=== PATIENT | female | born 1955 | race Caucasian/White ===

== ENCOUNTER 2018-10-26 21:25 | Inpatient (IN) | payer MEDICARE ==
[~2018-10-26] VITALS: Ht 160 cm; Wt 48.5 kg
[2018-10-27 07:12] LABS: BASOPHILS % (AUTO) 0.5 % (0.0-2.0); EOSINOPHILS % (AUTO) 0.6 % (0.0-6.0); HEMATOCRIT 38 % (33-45); HEMOGLOBIN 12.9 g/dL (11.5-14.8); LYMPHOCYTES # (AUTO) 1.3 /CMM (0.8-4.8); LYMPHOCYTES % (AUTO) 30.2 % (20.0-44.0); MEAN CORPUSCULAR HGB CONC 34 g/dl (31.0-36.0); MEAN CORPUSCULAR VOLUME 91 fL (82-100); MONOCYTES # (AUTO) 0.4 /CMM (0.1-1.30); MONOCYTES % (AUTO) 10.1 % (2.0-12.0); NEUTROPHILS # (AUTO) 2.6 /CMM (1.8-8.9); NEUTROPHILS % (AUTO) 58.6 % (43.0-81.0); PLATELET COUNT (AUTO) 147 /CMM (150-450); RED BLOOD CELL COUNT(AUTO) 4.16 MIL/uL (4.0-5.2); WHITE BLOOD COUNT (AUTO) 4.4 K/uL (4.3-11.0)
[2018-10-27] MEDS ORDERED: MAGNESIUM HYDROXIDE 30 ML UDC PO PRN (07:30)
[2018-10-27] MEDS ORDERED: ACETAMINOPHEN 325 MG TABLET PO PRN (07:30)
[2018-10-27] MEDS ORDERED: MAG HYDROX/AL HYDROX/SIMETH 30 ML UDC PO PRN (07:30)
[2018-10-27 07:42] LABS: CREATININE 0.7 mg/dL (0.6-1.3); MAGNESIUM 2.3 mg/dL (1.8-2.4); POTASSIUM 4.2 mmol/L (3.5-5.1)
[2018-10-27] MEDS ORDERED: FLUO15CR TD (08:23)
[2018-10-27] MEDS ORDERED: LISI-603 PO (08:23)
[2018-10-27] MEDS ORDERED: LORA1TAB PO (08:23)
[2018-10-27] MEDS ORDERED: HYDR200T4 PO (08:23)
[2018-10-27] MEDS ORDERED: OLAN10TA3 PO (08:23)
[2018-10-27] MEDS ORDERED: HALO5TAB PO (08:23)
[2018-10-27] MEDS ORDERED: METO25TA3 PO (08:23)
--- NOTE | 2018-10-27 10:09 | NUR ---
GPS RN NOTE: PT 63 Y/O FEMALE ADMITTED FROM [facility],PT PLACED ON 5150 HOLD FOR DTS,GD, PER HOLD PT AGITATED, UNABLE CONTRACT FOR SAFETY, UNABLE TO CARE FOR SELF. PE HAS HX OF HTN, COPE , SEPSIS, LUPUS, METH USE. PT A&OX1 , CONFUSED, JAMES AFFECT, ISOLATIVE, DEPRESSED MOOD. PT NON COOPERATIVE REFUSED SKIN ASSESSMENT, CHEST XRAY, REFUSED TO TAKE SHOWER, REFUSED TO ANSWER QUESTIONS. PT WAS SEEN AND EXAMINE BY DR JEFFERY. WILL CONTINUE MONITORING FOR SAFETY AND BEHAVIOR Q 15 MIN.
[2018-10-27] MEDS: OLANZAPINE 5 MG/TAB.RAPDIS PO SCH ×2 (12:47→21:08)
[2018-10-27] MEDS ORDERED: OLANZAPINE 2.5 MG TABLET PO PRN (15:00)
[2018-10-27 16:00] VITALS: BP 132/72
[2018-10-27] MEDS: TEMAZEPAM 7.5 MG CAPSULE PO PRN (21:38)
[2018-10-28 08:00] VITALS: BP 123/74
[2018-10-28] MEDS: HYDROXYCHLOROQUINE 200 MG TABLET PO SCH (09:39)
[2018-10-28] MEDS: FLUOCINONIDE 0.05% CREAM 60 GM TUBE TP SCH (09:39)
[2018-10-28] MEDS: LISINOPRIL (20MG) 20 MG TABLET PO SCH (09:40)
[2018-10-28] MEDS: METOPROLOL SUCCINATE 25 MG TAB.SR.24H PO SCH (09:40)
[2018-10-28] MEDS: OLANZAPINE 5 MG/TAB.RAPDIS PO SCH ×2 (09:41→20:21)
[2018-10-28 10:36] LABS: ALBUMIN 3.7 g/dL (3.4-5.0); BILIRUBIN,TOTAL 0.8 mg/dL (0.2-1.0); CALCIUM, SERUM 9.2 mg/dL (8.5-10.1); CREATININE 0.8 mg/dL (0.6-1.3); TOTAL PROTEIN, SERUM 7.9 g/dL (6.4-8.2)
--- NOTE | 2018-10-28 13:05 | NUR ---
GPS RN INITIAL NOTES Received report at bedside from Registry Nurse. Will continue to monitor and assess patient for safety and behavior.
--- NOTE | 2018-10-28 15:31 | NUR ---
GPS RN - NEW ORDER Paged Dr. Monsalve regarding UA - patient unable to provide urine sample. New order for straight cath: noted and carried out.
[2018-10-28 16:00] VITALS: BP 115/68
--- NOTE | 2018-10-28 16:14 | NUR ---
GPS RN NOTES Urine sample collected. pathology laboratory technologist/staff made aware for meat pickler
[2018-10-28 17:06] LABS: APPEARANCE,URINE CLOUDY (CLEAR); BILIRUBIN,URINE NEGATIVE (NEGATIVE); BLOOD, URINE NEGATIVE Ery/uL (NEGATIVE); COLOR,URINE YELLOW (YELLOW); KETONES,URINE NEGATIVE (NEGATIVE); LEUKOCYTE ESTERASE ,URINE 2+ (NEGATIVE); NITRITE, URINE POSITIVE (NEGATIVE); PROTEIN,URINE 2+ mg/dl (NEGATIVE); UGLUCOSE NEGATIVE (NEGATIVE)
[2018-10-28 17:30] LABS: PH,URINE >8.5 (5.0-8.0)
[2018-10-28 17:31] LABS: BACTERIA,URINE 4+ /HPF (None Seen); SQUAMOUS EPITHELIAL CELL,UR 0-2 /HPF (None Seen)
--- NOTE | 2018-10-28 17:35 | NUR ---
GPS RN NOTES power technician called to inform that UA needs to recollect
[2018-10-28] MEDS: LORAZEPAM 0.5 MG TABLET PO PRN (19:36)
[2018-10-28 20:00] VITALS: BP 93/59
--- NOTE | 2018-10-28 21:05 | NUR ---
GPS-RN RELAYED URINE LAB RESULT TO NELLY SIDDIQUI WITH NEW ORDER OF CIPROFLOXACIN 500MG PO Q12 X 5DAYS NOTED AND CARRIED OUT.
[2018-10-28] MEDS: CIPROFLOXACIN HCL 500 MG TABLET PO SCH (21:26)
[2018-10-29 08:00] VITALS: BP 107/56
[2018-10-29] MEDS: CIPROFLOXACIN HCL 500 MG TABLET PO SCH ×2 (08:59→21:50)
[2018-10-29] MEDS: METOPROLOL SUCCINATE 25 MG TAB.SR.24H PO SCH (08:59)
[2018-10-29] MEDS: LISINOPRIL (20MG) 20 MG TABLET PO SCH (08:59)
[2018-10-29] MEDS: OLANZAPINE 5 MG/TAB.RAPDIS PO SCH ×3 (09:00→17:55)
[2018-10-29] MEDS: FLUOCINONIDE 0.05% CREAM 60 GM TUBE TP SCH (10:43)
[2018-10-29] MEDS: HYDROXYCHLOROQUINE 200 MG TABLET PO SCH (10:44)
--- NOTE | 2018-10-29 11:51 | NUR ---
ALBARO contacted pts Oleksandr, for collateral information and discharge planning. stated that he is open to the idea of pt being discharged to a [facility] home but wishes for pt to be discharged home with a caregiver. stated that he will be coming on Monday10/31/18 to visit pt and assess her needs and his capability of caring for her at home.
--- NOTE | 2018-10-29 12:11 | NUR ---
INITIAL DISCHARGE PLAN: Per Oleksandr [phone] he is open to SNF placement but wishes for pt to return home [address] [place] [id number] with a caregiver. stated he will come this week to assess pt and his ability to care for pt at home. SW will help form a safe and proper discharge in collaboration with MD and .
[2018-10-29] MEDS: LORAZEPAM 0.5 MG TABLET PO PRN ×2 (14:16→21:50)
[2018-10-29 16:00] VITALS: BP 136/82
[2018-10-29 16:55] LABS: BASOPHILS % (AUTO) 0.6 % (0.0-2.0); EOSINOPHILS % (AUTO) 0.1 % (0.0-6.0); HEMATOCRIT 40 % (33-45); HEMOGLOBIN 13.7 g/dL (11.5-14.8); LYMPHOCYTES # (AUTO) 1.7 /CMM (0.8-4.8); LYMPHOCYTES % (AUTO) 22.1 % (20.0-44.0); MEAN CORPUSCULAR HGB CONC 34 g/dl (31.0-36.0); MEAN CORPUSCULAR VOLUME 90 fL (82-100); MONOCYTES # (AUTO) 0.6 /CMM (0.1-1.30); MONOCYTES % (AUTO) 7.3 % (2.0-12.0); NEUTROPHILS # (AUTO) 5.3 /CMM (1.8-8.9); NEUTROPHILS % (AUTO) 69.9 % (43.0-81.0); PLATELET COUNT (AUTO) 178 /CMM (150-450); RED BLOOD CELL COUNT(AUTO) 4.41 MIL/uL (4.0-5.2); WHITE BLOOD COUNT (AUTO) 7.6 K/uL (4.3-11.0)
[2018-10-29 17:07] LABS: BILIRUBIN,TOTAL 0.7 mg/dL (0.2-1.0); CALCIUM, SERUM 9.6 mg/dL (8.5-10.1); CREATININE 1.7 mg/dL (0.6-1.3); MAGNESIUM 2.2 mg/dL (1.8-2.4); TOTAL PROTEIN, SERUM 8.1 g/dL (6.4-8.2)
[2018-10-29 19:56] VITALS: BP 110/61
[2018-10-29] MEDS: TEMAZEPAM 7.5 MG CAPSULE PO PRN (21:50)
[2018-10-30] MEDS: FLUOCINONIDE 0.05% CREAM 60 GM TUBE TP SCH (09:00)
[2018-10-30] MEDS: LISINOPRIL (20MG) 20 MG TABLET PO SCH (09:00)
[2018-10-30] MEDS: HYDROXYCHLOROQUINE 200 MG TABLET PO SCH (09:00)
[2018-10-30] MEDS: CIPROFLOXACIN HCL 500 MG TABLET PO SCH (09:00)
[2018-10-30] MEDS: METOPROLOL SUCCINATE 25 MG TAB.SR.24H PO SCH (09:00)
[2018-10-30] MEDS: OLANZAPINE 5 MG/TAB.RAPDIS PO SCH (09:00)
[2018-10-30] MEDS ORDERED: IV D5/0.45 NACL 1,000 ML IV PRN (09:35)
[2018-10-30 09:42] VITALS: BP 105/56
--- NOTE | 2018-10-30 09:44 | NUR ---
RN-CO: Patient was seen and examined by Dr Gallegos with order to discharge patient to medical floor for further evaluation due to high BUN and creatine. Dr Molina ordered to discharge patient to medical floor and continue hold. NOted. We will notify family and RN supervisor ticket sales.
[2018-10-30] MEDS ORDERED: ACETAMINOPHEN 325 MG TABLET PO PRN (10:00)
[2018-10-30] MEDS ORDERED: MAG HYDROX/AL HYDROX/SIMETH 30 ML UDC PO PRN (10:00)
[2018-10-30] MEDS ORDERED: HYDROCODONE/APAP 5/325MG 1 EACH TABLET PO PRN (10:00)
[2018-10-30] MEDS ORDERED: CIPROFLOXACIN IV RTU 400 MG in PREMIX 1 EA IV SCH (10:00)
[2018-10-30] MEDS ORDERED: ONDANSETRON HCL/PF 4 MG/2 ML VIAL IVP PRN (10:00)
[2018-10-30] MEDS ORDERED: MAGNESIUM HYDROXIDE 30 ML UDC PO PRN (10:00)
[2018-10-30] MEDS ORDERED: ZOLPIDEM TARTRATE 5 MG TABLET PO PRN (10:00)
[2018-10-30] MEDS ORDERED: Z GUARD REMEDY 2 OZ OINT TP PRN (10:00)
[2018-10-30 10:34] LABS: BASOPHILS % (AUTO) 0.7 % (0.0-2.0); EOSINOPHILS % (AUTO) 0.5 % (0.0-6.0); HEMATOCRIT 40 % (33-45); HEMOGLOBIN 13.7 g/dL (11.5-14.8); LYMPHOCYTES # (AUTO) 1.3 /CMM (0.8-4.8); LYMPHOCYTES % (AUTO) 34.5 % (20.0-44.0); MEAN CORPUSCULAR HGB CONC 34 g/dl (31.0-36.0); MEAN CORPUSCULAR VOLUME 91 fL (82-100); MONOCYTES # (AUTO) 0.4 /CMM (0.1-1.30); MONOCYTES % (AUTO) 11.9 % (2.0-12.0); NEUTROPHILS % (AUTO) 52.4 % (43.0-81.0); PLATELET COUNT (AUTO) 156 /CMM (150-450); RED BLOOD CELL COUNT(AUTO) 4.41 MIL/uL (4.0-5.2); WHITE BLOOD COUNT (AUTO) 3.7 K/uL (4.3-11.0)
--- NOTE | 2018-10-30 11:00 | NUR ---
NURSING NOTE: PT WAS SEEN AND ASSESSED BY DR. CONNOR, WITH ORDER FOR IV FLUIDS. 22G LEFT HAND IV STARTED. WILL CONTINUE TO MONITOR.
[2018-10-30 11:10] LABS: ALBUMIN 3.8 g/dL (3.4-5.0); BILIRUBIN,TOTAL 0.8 mg/dL (0.2-1.0); CALCIUM, SERUM 9.2 mg/dL (8.5-10.1); CREATININE 2.1 mg/dL (0.6-1.3); MAGNESIUM 2.3 mg/dL (1.8-2.4); POTASSIUM 4.9 mmol/L (3.5-5.1); TOTAL PROTEIN, SERUM 7.6 g/dL (6.4-8.2)
--- NOTE | 2018-10-30 12:45 | NUR ---
NURSING DISCHARGE NOTE: PT WAS DISCHARGED TODAY TO MED SURG ROOM 313A FOR ACUTE RENAL FAILURE. PT IS CALM, COOPERATIVE, ISOLATIVE, GUARDED, DENIES SI/HI AT THIS TIME. PT REFUSING TO EAT AND DRINK, REFUSING MEDICATIONS, SPIT THEM OUT THIS MORNING. PT WAS SEEN AND ASSESSED BY DR. JEFFERY WITH ORDER TO DC PT TO MED SURG FLOOR AND CONTINUE 5250 HOLD. PT WAS SEEN AND ASSESSED BY DR. CONNOR WITH ORDER TO DC PT TO MED SURG FLOOR FOR ACUTE RENAL FAILURE. REPORT WAS GIVEN TO SCIENTIFIC PROGRAMMER ANALYST ON THE MED SURG UNIT. PT LEFT THE UNIT VIA DEVORAH CHAIR ACCOMPANIED BY 1 ACCOUNTING AUDITOR AND MYSELF TO MED SURG. ALL BELONGING WERE RETURNED TO PT. ORIGINAL 5150 AND 5250 HOLDS WERE GIVEN TO SCIENTIFIC PROGRAMMER ANALYST.
[2018-10-30] MEDS ORDERED: OLAN2.5T3 PO ×2 (14:05)
[2018-10-30] MEDS ORDERED: LORA0.5T PO (14:05)
[2018-10-30] MEDS ORDERED: ALLA266C2 TP (14:05)
[2018-10-30] MEDS ORDERED: HYDR-4384 PO (14:05)
[2018-10-30] MEDS ORDERED: PANT40TA4 PO (14:05)
[2018-10-30] MEDS ORDERED: TEMA7.5C12 PO (14:05)
[2018-10-30] MEDS ORDERED: MAGN400O6 PO (14:05)
[2018-10-30] MEDS ORDERED: MAG30ORA PO (14:05)
[2018-10-30] MEDS ORDERED: ONDA4SYR IVP (14:05)
[2018-10-30] MEDS ORDERED: CIPR500T5 PO (14:05)
[2018-10-30] MEDS ORDERED: ACET325T53 PO (14:05)
[2018-10-30] MEDS ORDERED: ZOLP5TAB8 PO (14:05)
[2018-10-30] MEDS ORDERED: CIPROFLOXACIN IV (14:05)
[2018-10-30] MEDS ORDERED: [UNRECOGNIZED DRUG - CODE] IV (14:10)
[2018-10-31] MEDS ORDERED: PANTOPRAZOLE 40 MG TABLET.DR PO SCH (07:30)
--- NOTE | 2018-10-31 13:21 | NUR ---
DISCHARGE NOTE: Pt was transferred to the Medical Floor due to acute kidney failure. Pt remains on a hold.
[2018-11-07] MEDS ORDERED: LORA0.5T PO (11:23)
[2018-11-07] MEDS ORDERED: MAG30ORA PO (11:23)
[2018-11-07] MEDS ORDERED: MEGE400O4 PO (11:23)
[2018-11-07] MEDS ORDERED: LACT-246 PO (11:23)
[2018-11-07] MEDS ORDERED: NICO-677 TD (11:23)
[2018-11-07] MEDS ORDERED: HYDR-3972 PO (11:23)
[2018-11-07] MEDS ORDERED: risperiDONE-M PO (11:23)
[2018-11-07] MEDS ORDERED: ACET325T53 PO (11:23)
[2018-11-07] MEDS ORDERED: PANT40TA2 PO (11:23)
[2018-11-07] MEDS ORDERED: VENL37.55 PO (11:23)
[2018-11-07] MEDS ORDERED: OLAN5TAB6 PO (11:23)
[2018-11-07] MEDS ORDERED: MAGN400O6 PO (11:23)
[2018-11-07] MEDS ORDERED: BENZ1TAB7 PO (11:23)
== END 2018-10-30 12:45 | disposition short-term general hospital (02) | DRG 885 ==
LOC: GPS 21:25
PROVIDERS: ADMIT Psychiatry & Neurology Psychosomatic Medicine; ATTEND Nurse Practitioner Acute Care
DX: F29 Unspecified psychosis not due to a substance or known physiological condition (principal); F01.50 Vascular dementia, unspecified severity, without behavioral disturbance, psychotic disturbance, mood disturbance, and anxiety; N17.0 Acute kidney failure with tubular necrosis; N39.0 Urinary tract infection, site not specified; G10 Huntington's disease; I10 Essential (primary) hypertension; J44.9 Chronic obstructive pulmonary disease, unspecified; E86.0 Dehydration; Z73.6 Limitation of activities due to disability; F15.11 Other stimulant abuse, in remission; F02.80 Dementia in other diseases classified elsewhere, unspecified severity, without behavioral disturbance, psychotic disturbance, mood disturbance, and anxiety
CPT/HCPCS: 36415; 80048-TC; 80053-TC; 80061-TC; 81000-TC; 83605-TC; 83735-TC; 84100-TC; 85025-TC; 87081-TC; A4216; J0744; J2405; J3490

== ENCOUNTER 2018-10-30 12:26 | Inpatient (IN) | payer MEDICARE ==
[~2018-10-30] VITALS: Ht 160 cm; Wt 42.2 kg
[~2018-10-30 12:26] MED LIST: FLUO15CR TD; HYDR200T4 PO; LISI-603 PO; METO25TA3 PO
--- NOTE | 2018-10-30 12:50 | NUR ---
m/s mirror machine feeder: admission admitted this pt from geropsych unit via w/c with dx: acute renal failure and uti. pt awake, alert to name, speech is clear, but refusing to converse with staff. also pt is resistive to care, full body assessment, but noted with facial redness and peeling, and skin discoloration on right thigh and right lower leg. pt gets combative m/b kicking and hitting staff despite with a female staff present. per report, pt refused her am meds and hasn't gone to bathroom since this morning, but able to ambulate. oriented to room and surroundings. pt keeps tossing and turning also refused to have her diaper change or check if she is wet. pt also refused vital signs to be taken. reality orientation provided prn. cn made aware. will continue to monitor.
--- NOTE | 2018-10-30 13:00 | NUR ---
m/s scratch polisher: notes spoke to dr. ingram earlier and i informed her that her orders from this morning will not be carried out to medical surgical floor due to different account with orders to put her orders in when pt arrived. all orders carried out and acknowledged.
--- NOTE | 2018-10-30 13:45 | NUR ---
m/s shank boner: notes maxwell (daughter) called and spoke to pt briefly (10 seconds) and then pt hang up on her. reality orientation provided prn. will continue to monitor. sitter at bedside.
--- NOTE | 2018-10-30 14:00 | NUR ---
m/s terra cotta mold maker: notes pt refusing to have photos taken to her face and still refusing to full body assessment. also pt refused mrsa suirvellance collection to nostril. reality orientation provided prn. sitter at bedside. will continue to monitor.
[2018-10-30] MEDS ORDERED: ACET325T53 PO (14:05)
[2018-10-30] MEDS ORDERED: MAG30ORA PO (14:05)
[2018-10-30] MEDS ORDERED: CIPR500T5 PO (14:05)
[2018-10-30] MEDS ORDERED: OLAN2.5T3 PO ×2 (14:05)
[2018-10-30] MEDS ORDERED: PANT40TA4 PO (14:05)
[2018-10-30] MEDS ORDERED: ONDA4SYR IVP (14:05)
[2018-10-30] MEDS ORDERED: LORA0.5T PO (14:05)
[2018-10-30] MEDS ORDERED: HYDR-4384 PO (14:05)
[2018-10-30] MEDS ORDERED: ZOLP5TAB8 PO (14:05)
[2018-10-30] MEDS ORDERED: TEMA7.5C12 PO (14:05)
[2018-10-30] MEDS ORDERED: MAGN400O6 PO (14:05)
[2018-10-30] MEDS ORDERED: ALLA266C2 TP (14:05)
[2018-10-30] MEDS ORDERED: CIPROFLOXACIN IV (14:05)
[2018-10-30] MEDS ORDERED: [UNRECOGNIZED DRUG - CODE] IV (14:10)
--- NOTE | 2018-10-30 14:25 | NUR ---
m/s legal financial specialist: notes dr. zuniga (psych) notified re: admission with order to continue ativan and psychotropic medications from previous admission. orders read back to her and carried out and acknowledged.
[2018-10-30] MEDS ORDERED: ACETAMINOPHEN 325 MG TABLET PO PRN (14:30)
[2018-10-30] MEDS ORDERED: ONDANSETRON HCL/PF 4 MG/2 ML VIAL IV PRN (14:30)
[2018-10-30] MEDS ORDERED: ZOLPIDEM TARTRATE 5 MG TABLET PO PRN (14:30)
[2018-10-30] MEDS ORDERED: HYDROCODONE/APAP 5/325MG 1 EACH TABLET PO PRN (14:30)
[2018-10-30] MEDS ORDERED: MAG HYDROX/AL HYDROX/SIMETH 30 ML UDC PO PRN (14:30)
[2018-10-30] MEDS ORDERED: OLANZAPINE 2.5 MG TABLET PO PRN (14:30)
[2018-10-30] MEDS ORDERED: LORAZEPAM 0.5 MG TABLET PO PRN (14:30)
[2018-10-30] MEDS ORDERED: MAGNESIUM HYDROXIDE 30 ML UDC PO PRN (14:30)
--- NOTE | 2018-10-30 14:40 | NUR ---
m/s absence management consultant: notes donnie () called and spoke to pt briefly and then hang up. pt remains resistive to care, not allowing staff to examine her, but not aggressive at this time, stated, "no". will continue to monitor.
[2018-10-30] MEDS: IV D5/0.45 NACL 1,000 ML IV PRN (15:00)
--- NOTE | 2018-10-30 15:00 | NUR ---
m/s medical payment poster: notes started pt on iv fluids of d5 1/2 ns, but pt keeps removing line and prevented her from pulling her iv. iv disconnected due to pt keeps pulling line. will continue to monitor.
--- NOTE | 2018-10-30 15:15 | NUR ---
m/s plunger scoop operator: notes gps staff brought her right belongings to floor, but noted clothes soiled with urine. place them in bag and sealed.
--- NOTE | 2018-10-30 15:30 | NUR ---
m/s maintenance tech: notes noted diaper soaking wet, offered to change her diaper, pt still resistive, but manage to change her diaper by female staff, but refuse pericare. reality orientation provided prn.
--- NOTE | 2018-10-30 16:10 | NUR ---
m/s ruby engineer: notes called donnie and informed him that pt clothes are soiled and come and visit tomorrow and will bring clothes. handed the phone to pt and spoke briefly. continue on 1:1 sitter. after talking to , pt agreed to have her iv connected. iv antibiotic administered by rn. will continue to monitor.
[2018-10-30] MEDS: CIPROFLOXACIN IV RTU 400 MG in PREMIX 1 EA IV SCH (16:11)
[2018-10-30] MEDS: OLANZAPINE 2.5 MG TABLET PO SCH (16:43)
--- NOTE | 2018-10-30 17:00 | NUR ---
m/s window glass cutter off: notes dinner served, but pt refused to eat. pt also refused vital signs to be taken. will continue to monitor.
--- NOTE | 2018-10-30 18:30 | NUR ---
m/s sport psychologist: notes in bed with eyes close, resting comfortable. needs attended. no apparent distress noted. will continue to monitor.
--- NOTE | 2018-10-30 19:00 | NUR ---
MS RN NOTES RECEIVED PT IN BED SLEEPING BUT EASILY AWOKEN VERBALLY OR BY TOUCH. PT A/O X1. PT DENIES PAIN AT THIS TIME. RESPIRATIONS EVEN AND UNLABORED WITH NO S/S OF ACUTE DISTRESS OR SOB NOTED. PT WITH SITTER AT BEDSIDE. IV IN LEFT HAND 22G RUNNING D51/2NS @75 ML/HR. CALL LIGHT WITHIN REACH. WILL CONTINUE TO MONITOR.
[2018-10-30 20:25] VITALS: BP 101/54
[2018-10-31] MEDS: CIPROFLOXACIN IV RTU 400 MG in PREMIX 1 EA IV SCH ×2 (02:24→14:14)
[2018-10-31] MEDS: IV D5/0.45 NACL 1,000 ML IV PRN ×2 (07:04→22:35)
--- NOTE | 2018-10-31 07:25 | NUR ---
MS RN NOTES PT IN BED SLEEPING BUT EASILY AWOKEN VERBALLY OR BY TOUCH. PT A/O X1. PT DENIES PAIN AT THIS TIME. RESPIRATIONS EVEN AND UNLABORED WITH NO S/S OF ACUTE DISTRESS OR SOB NOTED THROUGHOUT SHIFT. PT KEPT CLEAN, DRY, AND COMFORTABLE. PT WITH SITTER AT BEDSIDE. PT REFUSED AM LABS. IV IN LEFT HAND 22G RUNNING D51/2NS @75 ML/HR. CALL LIGHT WITHIN REACH. WILL ENDORSE TO ONCOMING NURSE FOR SHELBI.
[2018-10-31] MEDS: PANTOPRAZOLE 40 MG TABLET.DR PO SCH (07:30)
--- NOTE | 2018-10-31 07:34 | NUR ---
MS RN OPENING NOTES RECEIVED PT IN BED, ASLEEP. EASILY AROUSED, AND DOESN'T WANT TO BE BOTHERED AT THIS MOMENT. DENIES PAIN. TOLERATING RA, NO ACUTE RESPIRATORY DISTRESS NOTED. IVF D5 1/2 NS AT 75ML/HR TO LEFT HAND G22, INTACT AND INFUSING WELL. STILL WAITING FOR FAMILY MEMBER TO COME FOR PT UA COLLECTION AND AM LABS TO BE DRAWN. PER LICENSE ISSUER NURSE PT REFUSED FOR AM LABS. MD CONNOR PRESENT BEDSIDE AND AWARE OF PT'S REFUSALS THIS MORNING. PT'S BED KEPT IN LOWEST, LOCKED POSITION. SITTER PRESENT BEDSIDE. WILL CONTINUE PLAN OF CARE.
[2018-10-31] MEDS ORDERED: LISINOPRIL (20MG) 20 MG TABLET PO SCH (09:00)
[2018-10-31] MEDS: METOPROLOL SUCCINATE 25 MG TAB.SR.24H PO SCH (09:00)
[2018-10-31] MEDS: HYDROXYCHLOROQUINE 200 MG TABLET PO SCH (09:00)
[2018-10-31] MEDS: OLANZAPINE 2.5 MG TABLET PO SCH ×3 (09:00→16:37)
[2018-10-31] MEDS: FLUOCINONIDE 0.05% CREAM 60 GM TUBE TP SCH (09:00)
--- NOTE | 2018-10-31 09:23 | NUR ---
MS RN NOTES PT REFUSED ALL MORNING MEDICATIONS AND LIDEX CREAM FOR FACIAL RASH. WOUND NURSE PRESENT BEDSIDE AND PT REFUSED CONSULT. VITAL SIGNS WAS NOT TAKEN WELL PT INSISTING TO REFUSE ANYTHING. OFFERED BREAKFAST AND UP TO THIS MOMENT PT DOESN'T WANT IT/ STATING "I DONT NEED ANYTHING, IM GOING BACK TO SLEEP." SITTER PRESENT BEDSIDE AND WITNESSED.
--- NOTE | 2018-10-31 10:41 | NUR ---
WOUND CONSULT:PATIENT PRESENT ON ADMISSION FACIAL RASHES, CURRENT SHELL SCALE IS 16, PLAN OF CARE WILL DIFFER TO PRIMARY CARE DOCTOR AND DISCUSSED WITH NURSING STAFF,UNABLE TO CHECK BOTH LEGS DISCOLORATION, PATIENT NOT COOPERATIVE AND AGITATED.PRIMARY NURSE AWARE Addendum: 10/31/18 at 1047 by MAIRAM SCHWARZ RN Amended: Links added.
--- NOTE | 2018-10-31 11:30 | NUR ---
MS RN NOTES PT REFUSED THE US FOR KIDNEYS, AND 2ND TIME FOR BLOOD TO BE DRAWN. CALLED AND SPOKE TO /NUNU VIA PHONE. STATING HE COULD HELP BUT HE WILL BE VISITING [facility] AT 1800. [employer] MADE AWARE WELL.
--- NOTE | 2018-10-31 11:36 | NUR ---
PATIENT REFUSED US AT 1130 AM, RN WILL CALL BACK IF ANY CHANGE
--- NOTE | 2018-10-31 17:46 | NUR ---
MS RN NOTES PT'S PRESENT BEDSIDE. MADE AWARE LABS, SPOKE TO SHERRY IF THEY COULD TRY TO DRAW BLOOD WHILE THE IS HERE. WILL CONTINUE TO MONITOR.
[2018-10-31 18:10] LABS: BASOPHILS % (AUTO) 0.7 % (0.0-2.0); EOSINOPHILS % (AUTO) 0.9 % (0.0-6.0); HEMATOCRIT 36 % (33-45); HEMOGLOBIN 12.5 g/dL (11.5-14.8); LYMPHOCYTES # (AUTO) 1.2 /CMM (0.8-4.8); LYMPHOCYTES % (AUTO) 34.1 % (20.0-44.0); MEAN CORPUSCULAR HGB CONC 34 g/dl (31.0-36.0); MEAN CORPUSCULAR VOLUME 90 fL (82-100); MONOCYTES # (AUTO) 0.4 /CMM (0.1-1.30); MONOCYTES % (AUTO) 11.6 % (2.0-12.0); NEUTROPHILS # (AUTO) 1.8 /CMM (1.8-8.9); NEUTROPHILS % (AUTO) 52.7 % (43.0-81.0); PLATELET COUNT (AUTO) 146 /CMM (150-450); RED BLOOD CELL COUNT(AUTO) 4.05 MIL/uL (4.0-5.2); WHITE BLOOD COUNT (AUTO) 3.4 K/uL (4.3-11.0)
[2018-10-31 18:23] LABS: CALCIUM, SERUM 8.7 mg/dL (8.5-10.1); CREATININE 1.5 mg/dL (0.6-1.3); PHOSPHORUS 3.6 mg/dL (2.5-4.9); POTASSIUM 4.1 mmol/L (3.5-5.1)
--- NOTE | 2018-10-31 18:46 | NUR ---
MS RN CLOSING NOTES PT REMAINS IN BED, INTERMITTENTLY DOZING OFF, EASILY AROUSED. PT DENIES PAIN. TOLERATING RA, NO ACUTE RESPIRATORY DISTRESS NOTED. IVF D5 1/2 NS AT 75ML/HR TO LEFT HAND G22, INTACT AND INFUSING WELL. PRESENT BEDSIDE, BLOOD WAS ABLE TO DRAWN AROUND 1800 AND US FOR KIDNEY WITH THE HELP OF . ALL NEEDS AND CARE PROVIDED. PT'S BED KEPT IN LOWEST, LOCKED POSITION WITH SR X2. 1:1 SITTER PRESENT BEDSIDE. WILL ENDORSE TO RN COMMUNITY NURSE FOR SHELBI.
--- NOTE | 2018-10-31 19:00 | NUR ---
MS RN NOTES RECEIVED PT IN BED AWAKE WITH FAMILY AT BEDSIDE. PT A/O X1. PT DENIES PAIN AT THIS TIME. RESPIRATIONS EVEN AND UNLABORED WITH NO S/S OF ACUTE DISTRESS OR SOB NOTED. PT WITH SITTER AT BEDSIDE. IV IN LEFT HAND 22G RUNNING D51/2NS @75 ML/HR. SAFETY MEASURES IN PLACE WITH BED IN LOWEST LOCK POSITION WITH SIDE RAILS UP X2. CALL LIGHT WITHIN REACH. WILL CONTINUE TO MONITOR.
[2018-10-31 19:17] LABS: THYROID STIMULATING HORMONE 1.168 uIU/mL (0.358-3.74)
[2018-10-31 20:00] VITALS: BP 103/58
[2018-11-01] MEDS: CIPROFLOXACIN IV RTU 400 MG in PREMIX 1 EA IV SCH ×2 (02:11→14:04)
--- NOTE | 2018-11-01 07:37 | NUR ---
MS RN OPENING NOTES RECEIVED PT IN BED, AWAKE. PT DENIES PAIN. TOLERATING RA, NO ACUTE RESPIRATORY DISTRESS NOTED. SUPPOSED TO BE ON IVF D5 1/2 NS AT 75ML/HR PER NIGHT NURSE PT PULLED OUT IV LINE AROUND 0615, TRIED TO PUT BACK IN AND START A NEW ONE BUT PT STARTED TO BE COMBATIVE. CN MADE AWARE. PREFERS TO WAIT FOR BEDSIDE TO HELP PT TO BE CALM WHILE STARTING A NEW LINE. PT KEPT COMFORTABLE. PT'S BED KEPT IN LOWEST, LOCKED POSITION WITH SR X2. 1:1 SITTER PRESENT BEDSIDE. WILL CONTINUE PLAN OF CARE.
--- NOTE | 2018-11-01 07:39 | NUR ---
MS RN NOTES PT IN BED AWAKE WITH FAMILY AT BEDSIDE. PT A/O X1. PT DENIES PAIN AT THIS TIME. RESPIRATIONS EVEN AND UNLABORED WITH NO S/S OF ACUTE DISTRESS OR SOB NOTED THROUGHOUT SHIFT. PT WITH SITTER AT BEDSIDE. IV IN LEFT HAND 22G RUNNING WAS PULLED OUT. SAFETY MEASURES IN PLACE WITH BED IN LOWEST LOCK POSITION WITH SIDE RAILS UP X2. CALL LIGHT WITHIN REACH. WILL ENDORSE TO ONCOMING NURSE FOR SHELBI.
[2018-11-01] MEDS: PANTOPRAZOLE 40 MG TABLET.DR PO SCH (07:57)
[2018-11-01 08:00] VITALS: BP 107/55
[2018-11-01] MEDS: OLANZAPINE 2.5 MG TABLET PO SCH ×3 (08:01→16:11)
[2018-11-01] MEDS: HYDROXYCHLOROQUINE 200 MG TABLET PO SCH (08:02)
[2018-11-01] MEDS: METOPROLOL SUCCINATE 25 MG TAB.SR.24H PO SCH (08:39)
[2018-11-01] MEDS: FLUOCINONIDE 0.05% CREAM 60 GM TUBE TP SCH (08:42)
[2018-11-01 09:42] LABS: BASOPHILS % (AUTO) 0.6 % (0.0-2.0); EOSINOPHILS % (AUTO) 0.7 % (0.0-6.0); HEMATOCRIT 38 % (33-45); LYMPHOCYTES # (AUTO) 1.1 /CMM (0.8-4.8); LYMPHOCYTES % (AUTO) 38.3 % (20.0-44.0); MEAN CORPUSCULAR HGB CONC 34 g/dl (31.0-36.0); MEAN CORPUSCULAR VOLUME 91 fL (82-100); MONOCYTES # (AUTO) 0.4 /CMM (0.1-1.30); MONOCYTES % (AUTO) 14.1 % (2.0-12.0); NEUTROPHILS # (AUTO) 1.3 /CMM (1.8-8.9); NEUTROPHILS % (AUTO) 46.3 % (43.0-81.0); PLATELET COUNT (AUTO) 136 /CMM (150-450); RED BLOOD CELL COUNT(AUTO) 4.21 MIL/uL (4.0-5.2); WHITE BLOOD COUNT (AUTO) 2.8 K/uL (4.3-11.0)
[2018-11-01 09:55] LABS: ALBUMIN 3.5 g/dL (3.4-5.0); BILIRUBIN,TOTAL 0.6 mg/dL (0.2-1.0); CALCIUM, SERUM 8.9 mg/dL (8.5-10.1); CREATININE 1.4 mg/dL (0.6-1.3); MAGNESIUM 1.9 mg/dL (1.8-2.4); PHOSPHORUS 2.9 mg/dL (2.5-4.9); POTASSIUM 4.1 mmol/L (3.5-5.1)
[2018-11-01 10:12] LABS: LYMPHOCYTES % (MANUAL) 35 % (16-48); MONOCYTES % (MANUAL) 11 % (0-11.0); NEUTROPHILS % (MANUAL) 54 (42-76)
[2018-11-01 16:00] VITALS: BP 126/78
[2018-11-01] MEDS: ENSURE ENLIVE CHOC 237 ML CAN PO SCH (17:08)
--- NOTE | 2018-11-01 19:00 | NUR ---
MS RN CLOSING NOTES PT REMAINS IN BED, AWAKE. PT DENIES PAIN. TOLERATING RA, NO ACUTE RESPIRATORY DISTRESS NOTED. IVF D5 1/2 NS AT 75ML/HR TO LEFT FOREARM G22,INATCT AND INFUSING WELL. PT REFUSED LUNCH OF MEAL, MD MONTES AWARE. NUNU PRESENT BEDSIDE THIS MORNING ASND HAD A CHANCE TO SPEAK TO JAYNE/JORDYN REGARDING PLAN OF TRANSFER. ALL NEEDS AND CARE PROVIDED. PT KEPT COMFORTABLE. PT'S BED KEPT IN LOWEST, LOCKED POSITION WITH SR X2. 1:1 SITTER PRESENT BEDSIDE. WILL ENDORSE TO QUALITY CONTROL ANALYST NURSE FOR SHELBI..
--- NOTE | 2018-11-01 19:29 | NUR ---
MS RN RECEIVE PT IN BED A/O X 1, 1:1 SITTER, AWAKE, RESPIRATIONS EVEN AND UNLABORED, NO SOB NOTED, NO DISTRESS, SAFETY MEASURES IN PLACE. WILL CONTINUE TO MONITOR.
[2018-11-01 20:00] VITALS: BP 151/80
[2018-11-01] MEDS: TEMAZEPAM 7.5 MG CAPSULE PO PRN (21:07)
[2018-11-01] MEDS ORDERED: OLANZAPINE 5 MG/TAB.RAPDIS PO SCH (22:00)
[2018-11-02] MEDS: CIPROFLOXACIN IV RTU 400 MG in PREMIX 1 EA IV SCH ×2 (02:12→15:57)
--- NOTE | 2018-11-02 06:01 | NUR ---
MS RN asleep and easily awaken, not in distress, AM care rendered. pt appears withdrawn, flat affect denies active suicidal and HI.pt refuses answer question re orient pt freq, encourage po/fluid intake. 1:1 sitter. kept clean and dry and comfortable. endorse next shift poc. Addendum: 11/02/18 at 0606 by TATI SANDOVAL RN pt still refusing to provide UA sample despite explaining risks and benefits pt became agitated when touch
--- NOTE | 2018-11-02 06:15 | NUR ---
slept well during the night 10 hours
--- NOTE | 2018-11-02 07:15 | NUR ---
MS/RN OPENING NOTE THE PATIENT ALERT AND ORIENTED X1. IN ROOM AIR AND RESPIRATION REGULAR AND UNLABORED. PATIENT IN NO APPARENT DISTRESS. LFA G 22 PATENT AND SALINE LOCKED. BED LOW AND LOCKED. SIDE RAILS UP X3. CALL LIGHT WITHIN REACH. WILL CONTINUE TO MONITOR. Addendum: 11/02/18 at 0741 by HE JOHNSON RN SITTER AT THE BEDSIDE.
[2018-11-02 08:00] VITALS: BP 119/77
[2018-11-02] MEDS: NICOTINE PATCH (21MG) 21 MG PATCH.TD24 TD SCH (08:35)
[2018-11-02] MEDS: PANTOPRAZOLE 40 MG TABLET.DR PO SCH (08:35)
[2018-11-02] MEDS: ENSURE ENLIVE CHOC 237 ML CAN PO SCH ×3 (08:35→17:00)
[2018-11-02] MEDS ORDERED: VENLAFAXINE XR 37.5 MG CAP.SR.24H PO SCH (09:00)
[2018-11-02] MEDS: METOPROLOL SUCCINATE 25 MG TAB.SR.24H PO SCH (09:00)
[2018-11-02] MEDS: HYDROXYCHLOROQUINE 200 MG TABLET PO SCH (09:00)
[2018-11-02] MEDS: OLANZAPINE 2.5 MG TABLET PO SCH ×2 (09:25→16:11)
[2018-11-02 10:27] LABS: BASOPHILS % (AUTO) 0.7 % (0.0-2.0); EOSINOPHILS % (AUTO) 1.2 % (0.0-6.0); HEMATOCRIT 38 % (33-45); HEMOGLOBIN 12.9 g/dL (11.5-14.8); LYMPHOCYTES # (AUTO) 1.2 /CMM (0.8-4.8); LYMPHOCYTES % (AUTO) 37.7 % (20.0-44.0); MEAN CORPUSCULAR HGB CONC 34 g/dl (31.0-36.0); MEAN CORPUSCULAR VOLUME 90 fL (82-100); MONOCYTES # (AUTO) 0.3 /CMM (0.1-1.30); MONOCYTES % (AUTO) 8.7 % (2.0-12.0); NEUTROPHILS # (AUTO) 1.6 /CMM (1.8-8.9); NEUTROPHILS % (AUTO) 51.7 % (43.0-81.0); PLATELET COUNT (AUTO) 142 /CMM (150-450); RED BLOOD CELL COUNT(AUTO) 4.24 MIL/uL (4.0-5.2); WHITE BLOOD COUNT (AUTO) 3.1 K/uL (4.3-11.0)
[2018-11-02 10:40] LABS: CALCIUM, SERUM 9.1 mg/dL (8.5-10.1); CREATININE 1.4 mg/dL (0.6-1.3); MAGNESIUM 1.9 mg/dL (1.8-2.4); PHOSPHORUS 3.6 mg/dL (2.5-4.9); POTASSIUM 4.2 mmol/L (3.5-5.1)
[2018-11-02 12:11] LABS: *SPE A/G RATIO 1.1 (0.7-1.7); *SPE ALBUMIN 3.4 g/dL (2.9-4.4); *SPE ALPHA-1-GLOBULIN 0.2 g/dL (0.0-0.4); *SPE ALPHA-2-GLOBULIN 0.6 g/dL (0.4-1.0); *SPE BETA GLOBULIN 0.9 g/dL (0.7-1.3); *SPE GLOBULIN, TOTAL 3.1 g/dL (2.2-3.9); *SPE M-SPIKE Not Observed g/dL (Not Observed); *SPEGAMMA GLOBULIN 1.4 g/dL (0.4-1.8)
--- NOTE | 2018-11-02 13:00 | NUR ---
RN NOTE AT 1240 THE PATIENT AGREED FOR HEAD TO TOE SKIN ASSESSMENT. DURING THE ASSESSMENT THE PATIENT WITH FREQUENT EPISODES OF BEING NOT COOPERATIVE AND JAIL TO THE SKIN ASSESSMENT PROCESS THE PATIENT BECAME MORE NON-COOPERATIVE AND REFUSED FURTHER PICTURES TO BE TAKEN.
[2018-11-02 13:11] LABS: PTH, INTACT 24 pg/mL (15-65)
[2018-11-02] MEDS: IV D5/0.45 NACL 1,000 ML IV PRN (13:24)
[2018-11-02] MEDS: FLUOCINONIDE 0.05% CREAM 60 GM TUBE TP SCH (13:39)
--- NOTE | 2018-11-02 16:00 | NUR ---
RN NOTE DR CONNOR IS MADE AWARE ABOUT THE PATIENT`S SKIN ASSESSMENT, THE PATIENT`S `S CONCERNS ABOUT THE DISCOLORATIONS AND HIS REQUEST TO SPEAK THE MD. DR CONNOR IS MADE AWARE TO CALL THE .
--- NOTE | 2018-11-02 18:03 | NUR ---
RN CLOSING NOTE THE PATIENT ALERT AND ORIENTED X1. PATIENT HAS CLEAR SPEECH AND ABLE TO MAKE NEEDS KNOWN VERBALLY. PATIENT HAS EPISODES BEING NON-COOPERATIVE AND REFUSING CARE. ALSO, THE PATIENT HAS VERY POOR PO INTAKE DESPITE EXPLAINING RISKS AND BENEFITS AND ENCOURAGING MULTIPLE TIMES. LFA G 22 PATENT AND D5 1/2 NS INFUSING AT 75ML/HR AND NO S/S INFILTRATION NOTED. GENTLE SKIN CARE RENDERED. KEPT CLEAN AND COMFORTABLE. ALL NEEDS ATTENDED AND ANTICIPATED. WILL ENDORSE TO AIRWORTHINESS SAFETY INSPECTOR.
--- NOTE | 2018-11-02 19:45 | NUR ---
RN OPENING NOTES RECEIVED PATIENT AWAKE IN BED. PATIENT IS ALERT AND ORIENTED X1. PATIENT HAS NO SIGNS OF RESPIRATORY DISTRESS. PATIENT DENIES SHORTNESS OF BREATH. PATIENT DENIES PAYAL AT THIS TIME. IV SITE INTACT AND PATENT. PATIENT IS ABLE TO MAKE NEEDS KNOWN VERBALLY. SITTER IS AT BEDSIDE. SAFETY PRECAUTIONS IMPLEMENTED. CALL LIGHT WITHIN REACH. WILL CONTINUE TO MONITOR PATIENT THROUGHOUT THE SHIFT.
[2018-11-02 21:00] VITALS: BP 147/82
[2018-11-02] MEDS: OLANZAPINE 5 MG/TAB.RAPDIS PO SCH (21:47)
--- NOTE | 2018-11-03 00:22 | NUR ---
RN NOTES PATIENT PULLED OUT IV ON LFA G22. I REATTEMPTED TO REINSERT A NEW SITE. PATIENT REFUSED BY PULLING HER ARM AWAY FROM ME. WILL ATTEMPT TO REINSERT AGAIN LATER.
[2018-11-03] MEDS: TEMAZEPAM 7.5 MG CAPSULE PO PRN (00:36)
--- NOTE | 2018-11-03 00:44 | NUR ---
RN NOTES PRN TEMAZEPAM GIVEN FOR SLEEP. PATIENT UNABLE TO GET ADEQUATE REST AT THIS TIME.
[2018-11-03] MEDS: CIPROFLOXACIN IV RTU 400 MG in PREMIX 1 EA IV SCH ×3 (02:33→16:09)
--- NOTE | 2018-11-03 03:15 | NUR ---
RN NOTES IV INSERTED. RIGHT WRIST G22. PATENT AND INTACT. RUNNING D5 1/2 NS @75 ML/HR.
--- NOTE | 2018-11-03 06:32 | NUR ---
RN CLOSING NOTES PATIENT IS RESTING IN BED, COMFORTABLY. PATIENT HAS NO SIGNS OF RESPIRATORY DISTRESS OR SHORTNESS OF BREATH. PATIENT HAS NO FACIAL GRIMACING NOTED. IV SITE PATENT AND INTACT. SITTER IS AT BEDSIDE. SAFETY PRECAUTIONS IMPLEMENTED. CALL LIGHT WITHIN REACH. WILL ENDORSE TO ONCOMING AM RN.
[2018-11-03] MEDS: ENSURE ENLIVE CHOC 237 ML CAN PO SCH ×3 (08:00→16:51)
--- NOTE | 2018-11-03 08:00 | NUR ---
MS RN OPENING NOTES: RECEIVED PATIENT ASLEEP IN BED WITH 1:1 SITTER. NOT IN RESPIRATORY DISTRESS. REFUSED V/S MONITORING. WILL CONTINUE TO MONITOR FOR SAFETY.
[2018-11-03 08:08] LABS: COMPLEMENT C3, SERUM 116 mg/dL (82-167); COMPLEMENT C4, SERUM 27 mg/dL (14-44)
[2018-11-03] MEDS: IV D5/0.45 NACL 1,000 ML IV PRN (09:13)
[2018-11-03] MEDS: NICOTINE PATCH (21MG) 21 MG PATCH.TD24 TD SCH (09:26)
[2018-11-03] MEDS: PANTOPRAZOLE 40 MG TABLET.DR PO SCH (09:26)
[2018-11-03] MEDS: VENLAFAXINE XR 37.5 MG CAP.SR.24H PO SCH (09:26)
[2018-11-03] MEDS: OLANZAPINE 2.5 MG TABLET PO SCH ×2 (09:27→16:51)
[2018-11-03] MEDS: METOPROLOL SUCCINATE 25 MG TAB.SR.24H PO SCH (09:27)
[2018-11-03] MEDS: FLUOCINONIDE 0.05% CREAM 60 GM TUBE TP SCH (09:29)
[2018-11-03] MEDS: HYDROXYCHLOROQUINE 200 MG TABLET PO SCH (09:33)
[2018-11-03 09:39] VITALS: BP 140/67
[2018-11-03] MEDS: MEGESTROL ACETATE SUSP 400 MG/10 ML UDC PO SCH ×2 (10:34→16:51)
[2018-11-03 10:36] LABS: ALBUMIN 3.3 g/dL (3.4-5.0); BILIRUBIN,TOTAL 0.7 mg/dL (0.2-1.0); CALCIUM, SERUM 8.8 mg/dL (8.5-10.1); CREATININE 1.1 mg/dL (0.6-1.3); MAGNESIUM 1.8 mg/dL (1.8-2.4); PHOSPHORUS 3.5 mg/dL (2.5-4.9); POTASSIUM 4.1 mmol/L (3.5-5.1); TOTAL PROTEIN, SERUM 6.8 g/dL (6.4-8.2)
--- NOTE | 2018-11-03 12:43 | NUR ---
URINE SAMPLE OBTAINED THRU STRAIGHT CATH, URINE WNL. WITH 2 PERSONS ASSIST TO HOLD THE PATIENT, COMBATIVE. AFTER THE URINE COLLECTED PATIENT SEEMS RELAXED AND CALM, NOT COMBATIVE. SITTER AT THE BEDSIDE. PATIENT STILL REFUSING TO EAT HER LUNCH, HOWEVER CONTACT CENTER ENGINEER SITTER STILL ENCOURAGING THE PATIENT TO EAT.
[2018-11-03 13:05] LABS: APPEARANCE,URINE TURBID (CLEAR); BILIRUBIN,URINE NEGATIVE (NEGATIVE); BLOOD, URINE NEGATIVE Ery/uL (NEGATIVE); COLOR,URINE YELLOW (YELLOW); KETONES,URINE NEGATIVE (NEGATIVE); LEUKOCYTE ESTERASE ,URINE NEGATIVE (NEGATIVE); NITRITE, URINE NEGATIVE (NEGATIVE); PH,URINE 5.5 (5.0-8.0); PROTEIN,URINE NEGATIVE (NEGATIVE); UGLUCOSE NEGATIVE (NEGATIVE); UROBILINOGEN,URINE 0.2 EU/dL (0.2)
--- NOTE | 2018-11-03 15:17 | NUR ---
AT AROUND 1445, ACCORDING TO THE RADIO STATION ENGINEER SITTER PATIENT PULLED HER IV OUT. REFUSED TO HAVE IV REINSERTION AT THIS TIME. A FAMILY MEMBER CAME TO VISIT AND BROUGHT A PIZZA, PATIENT IS EATING IT. PATIENT LOOKS HAPPY AND VERY CALM AND TALKING TO THE FAMILY MEMBER WHILE EATING. CARMINE SITTER AT THE BEDSIDE.
--- NOTE | 2018-11-03 16:16 | NUR ---
AT THE BEDSIDE TALKING TO THE PATIENT. PATIENT IS HAPPY AND VERY CALM, TALKING TO THE . IV REINSERTED BY DELBERT DASILVA AT THE RIGHT AC G22, WITH GOOD BLOOD RETURN AND SECURED. STATED THAT HE WILL STAY FOR AN HOUR, INSTRUCTED TO CALL LIZ ANY ASSISTANCE, VERBALIZED UNDERSTANDING.
--- NOTE | 2018-11-03 16:43 | NUR ---
PATIENT'S STILL AT THE BEDSIDE, TALKING TO THE PATIENT AND PATIENT IS VERY HAPPY AND VERY CALM. IS TAKING THE PICTURE OF THE PATIENT AND PATIENT IS COOPERATIVE, AND ASKED FOR MORE PICTURE TAKINGS.
--- NOTE | 2018-11-03 18:39 | NUR ---
MS RN NOTES: PATIENT'S RESPIRATORY STATUS STABLE. NO COMPLAIN OF PAIN. PATIENT ATE A SLICE OF PIZZA BROUGHT BY THE EARLIER, AND HAD SOME OF THE ENSURE DRINK. PATIENT WAS CALM, HAPPY, AND TALKING TO THE PATIENT. RESTING IN BED AT THIS MOMENT WITH THE CONTAINER CRANE OPERATOR SITTER AT THE BEDSIDE. NO ACUTE EVENTS DURING THE SHIFT.
--- NOTE | 2018-11-03 19:30 | NUR ---
MS RN INITIAL NOTES Patient in bed, awake with confusion. Uncooperative with care, incontinent on bladder, diaper changed with assistance of 3 persons. Stable oxygen saturation on RA, denies SOB. IVF infusing. Maintained safety 1:1 sitter at the bedside, will cont to monitor.
[2018-11-03 20:36] VITALS: BP 134/70
[2018-11-03 20:53] VITALS: BP 134/70
[2018-11-03] MEDS: OLANZAPINE 5 MG/TAB.RAPDIS PO SCH (21:19)
[2018-11-04] MEDS: CIPROFLOXACIN IV RTU 400 MG in PREMIX 1 EA IV SCH (03:24)
[2018-11-04] MEDS: IV D5/0.45 NACL 1,000 ML IV PRN ×2 (03:45→21:38)
--- NOTE | 2018-11-04 06:13 | NUR ---
CHANGE OF SHIFT REPORT Patient slept well, more than 6hours. IVF infusing, maintained at 75 ml/hr, IV antibiotic as scheduled, No BM this shift, VSS, denies pain. Patient appears withdrawn when awake, quiet. Compliant with medication, uncooperative and full encouragement during hygiene care. On 5249 Hold, grave disability. safety check continuous, 1:1 sitter. DC planning, CM following.
--- NOTE | 2018-11-04 07:30 | NUR ---
ms rn received on bed,sleeping,not in any form of distress, respirations even and unlabored,no sob noted,lungs are clear,abdomen soft,positive bowel sounds,denies pain at this time, w/ sitter for safety and comfort,all needs attended.
[2018-11-04 07:53] LABS: BASOPHILS % (AUTO) 0.5 % (0.0-2.0); EOSINOPHILS % (AUTO) 1.5 % (0.0-6.0); HEMATOCRIT 39 % (33-45); LYMPHOCYTES # (AUTO) 1.6 /CMM (0.8-4.8); LYMPHOCYTES % (AUTO) 30.3 % (20.0-44.0); MEAN CORPUSCULAR HGB CONC 34 g/dl (31.0-36.0); MEAN CORPUSCULAR VOLUME 91 fL (82-100); MONOCYTES # (AUTO) 0.5 /CMM (0.1-1.30); MONOCYTES % (AUTO) 9.1 % (2.0-12.0); NEUTROPHILS # (AUTO) 3.2 /CMM (1.8-8.9); NEUTROPHILS % (AUTO) 58.6 % (43.0-81.0); PLATELET COUNT (AUTO) 138 /CMM (150-450); RED BLOOD CELL COUNT(AUTO) 4.23 MIL/uL (4.0-5.2); WHITE BLOOD COUNT (AUTO) 5.4 K/uL (4.3-11.0)
[2018-11-04 08:00] VITALS: BP 122/65
[2018-11-04] MEDS: ENSURE ENLIVE 237 ML LIQUID (VANILLA) PO SCH ×2 (09:30→17:00)
--- NOTE | 2018-11-04 09:40 | NUR ---
ms rn refused breakfast, due meds given,tolerated well.
[2018-11-04] MEDS: PANTOPRAZOLE 40 MG TABLET.DR PO SCH (10:33)
[2018-11-04] MEDS: VENLAFAXINE XR 37.5 MG CAP.SR.24H PO SCH (10:38)
[2018-11-04] MEDS: MEGESTROL ACETATE SUSP 400 MG/10 ML UDC PO SCH ×2 (10:38→17:12)
[2018-11-04] MEDS: OLANZAPINE 2.5 MG TABLET PO SCH ×2 (10:39→17:12)
[2018-11-04] MEDS: FLUOCINONIDE 0.05% CREAM 60 GM TUBE TP SCH (10:40)
--- NOTE | 2018-11-04 11:00 | NUR ---
ms rn was seen by louis mathew, no order at this time.refused labs, aware.
[2018-11-04] MEDS: HYDROXYCHLOROQUINE 200 MG TABLET PO SCH (11:12)
[2018-11-04] MEDS: METOPROLOL SUCCINATE 25 MG TAB.SR.24H PO SCH (11:12)
--- NOTE | 2018-11-04 11:30 | NUR ---
ms rn efrain mina called regarding patient,all needs attended.
[2018-11-04] MEDS ORDERED: VENLAFAXINE XR 37.5 MG CAP.SR.24H PO SCH (13:00)
--- NOTE | 2018-11-04 14:00 | NUR ---
ms journeyman tool and die maker at bedside, ate lunch, 100%.
[2018-11-04] MEDS: NICOTINE PATCH (21MG) 21 MG PATCH.TD24 TD SCH (17:12)
[2018-11-04 18:00] VITALS: BP 130/65
--- NOTE | 2018-11-04 18:40 | NUR ---
ms rn on bed, no distress,all needs attended.
--- NOTE | 2018-11-04 19:20 | NUR ---
MS/RN OPENING NOTES PT RECEIVED AWAKE, IN BED. CONFUSED. ON ROOM AIR, BREATHING EVEN AND UNLABORED. NO S/S OF SOB OR PAIN AT THIS TIME. IN NO ACUTE DISTRESS. IV TO RIGHT HAND PATENT AND INTACT RUNNING IVF ORDERED. SITTER AT BEDSIDE. SIDE RAILS UPX3 AND BED ALARM ON FOR SAFETY. BED IN LOW/LOCKED POSITION WITH CALL LIGHT IN REACH. WILL CONTINUE TO MONITOR
[2018-11-04 20:00] VITALS: BP 101/50
[2018-11-04] MEDS: OLANZAPINE 5 MG/TAB.RAPDIS PO SCH (21:38)
--- NOTE | 2018-11-05 06:47 | NUR ---
RN CLOSING NOTES PT ASLEEP, OPENS EYES SPONTANEOUSLY. SITTER REMAINS AT BEDSIDE. ON ROOM AIR, BREATHING EVEN AND UNLABORED. NO S/S OF SOB OR PAIN DURING THIS TIME. IN NO ACUTE DISTRESS. PT IS VERY WITHDRAWN. DOES NOT ENGAGE. REFUSING CARE BUT COMPLIANT WITH PM MEDS. BECAME COMBATIVE (HITTING/KICKING STAFF( DURING DIAPER CHANGE. ONLY ABLE TO TAKE PHOTOS VISIBLE ON THE RIGHT SIDE, PT RESISTING TO TURN. SLEPT WELL DURING SHIFT. IV TO RIGHT HAND PATENT AND INTACT RUNNING IVF ORDERED. NO CHANGES OVERNIGHT. BED REMAINS IN LOW/LOCKED POSITION WITH CALL LIGHT IN REACH, SIDE RAILS UPX3 AND BED ALARM ON FOR SAFETY. WILL ENDORSE TO DAY SHIFT RN SHELBI.
--- NOTE | 2018-11-05 08:00 | NUR ---
MS RN OPENING NOTES Received Patient comfortable and sleeping in bed. VS stable with no acute distress. No signs and symptoms of pain at this moment. Breathing even and unlabored on room air with O2 sat 99% with no respiratory distress. PIV on RIGHT HAND 22g with D5 1/2NS running at 75cc/hr. IV site clean, dry, intact and flushes well. Safety precautions placed. Bed locked and set to lowest position with side rails x 2 up. Sitter at bedside. Will continue to monitor.
[2018-11-05] MEDS: ENSURE ENLIVE 237 ML LIQUID (VANILLA) PO SCH ×2 (09:00→17:41)
[2018-11-05] MEDS: PANTOPRAZOLE 40 MG TABLET.DR PO SCH (10:39)
[2018-11-05] MEDS: VENLAFAXINE XR 37.5 MG CAP.SR.24H PO SCH (10:40)
[2018-11-05] MEDS: MEGESTROL ACETATE SUSP 400 MG/10 ML UDC PO SCH ×2 (10:41→17:42)
[2018-11-05] MEDS: HYDROXYCHLOROQUINE 200 MG TABLET PO SCH (10:41)
[2018-11-05] MEDS: OLANZAPINE 2.5 MG TABLET PO SCH ×3 (10:42→17:42)
[2018-11-05] MEDS: METOPROLOL SUCCINATE 25 MG TAB.SR.24H PO SCH (10:42)
[2018-11-05] MEDS: NICOTINE PATCH (21MG) 21 MG PATCH.TD24 TD SCH (10:42)
[2018-11-05] MEDS: FLUOCINONIDE 0.05% CREAM 60 GM TUBE TP SCH (10:43)
[2018-11-05] MEDS ORDERED: VENLAFAXINE XR 37.5 MG CAP.SR.24H PO SCH (13:00)
[2018-11-05 13:36] LABS: BASOPHILS % (AUTO) 0.5 % (0.0-2.0); EOSINOPHILS % (AUTO) 0.9 % (0.0-6.0); HEMATOCRIT 36 % (33-45); HEMOGLOBIN 12.4 g/dL (11.5-14.8); LYMPHOCYTES # (AUTO) 2.4 /CMM (0.8-4.8); LYMPHOCYTES % (AUTO) 41.4 % (20.0-44.0); MEAN CORPUSCULAR HGB CONC 34 g/dl (31.0-36.0); MEAN CORPUSCULAR VOLUME 90 fL (82-100); MONOCYTES # (AUTO) 0.4 /CMM (0.1-1.30); MONOCYTES % (AUTO) 6.2 % (2.0-12.0); NEUTROPHILS # (AUTO) 2.9 /CMM (1.8-8.9); PLATELET COUNT (AUTO) 141 /CMM (150-450); RED BLOOD CELL COUNT(AUTO) 4.05 MIL/uL (4.0-5.2); WHITE BLOOD COUNT (AUTO) 5.7 K/uL (4.3-11.0)
[2018-11-05 13:42] LABS: CALCIUM, SERUM 8.8 mg/dL (8.5-10.1); CREATININE 1.1 mg/dL (0.6-1.3); POTASSIUM 3.7 mmol/L (3.5-5.1)
--- NOTE | 2018-11-05 14:00 | NUR ---
MS DASILVA NOTES Patient pulled out PIV on Addendum: 11/05/18 at 1957 by BILL BATEMAN RN INCOMPLETE DOCUMENTATION RIGHT HAND 22g. No active bleeding nor pain at site. Will continue to monitor.
--- NOTE | 2018-11-05 19:35 | NUR ---
RN OPENING NOTES PT RECEIVED IN BED. ASLEEP. OPENS EYES SPONTANEOUSLY. SITTER AT BEDSIDE. NON VERBAL AT THIS TIME. ON ROOM AIR, BREATHING EVEN AND UNLABORED. NO S/S OF SOB OR PAIN AT THIS TIME. IN NO ACUTE DISTRESS. PT PULLED OUT IV ON DAY SHIFT. UNABLE TO REINSERT DUE TO PT BEING COMBATIVE AND RESISTANT TO CARE. WILL TRY AGAIN DURING SHIFT. BED IN LOW/LOCKED POSITION WITH CALL LIGHT IN REACH, SIDE RAILS UPX3 AND BED ALARM ON FOR SAFETY. WILL CONTINUE TO MONITOR
--- NOTE | 2018-11-05 19:54 | NUR ---
MS RN CLOSING NOTES Patient comfortable and sleeping in bed. VS stable with no acute distress. No signs and symptoms of pain at this moment. Breathing even and unlabored on room air with O2 sat 99% with no respiratory distress. Safety precautions placed. Bed locked and set to lowest position with side rails x 2 up. Sitter at bedside. Will endorse plan of care to oncoming nurse.
[2018-11-05 20:00] VITALS: BP 114/63
[2018-11-05] MEDS ORDERED: OLANZAPINE 5 MG TABLET PO SCH (22:00)
--- NOTE | 2018-11-06 06:40 | NUR ---
RN CLOSING NOTES PT LAYING IN BED WITH EYES CLOSED. SITTER REMAINS AT BEDSIDE. ON ROOM AIR, BREATHING EVEN AND UNLABORED. NO S/S OF SOB OR PAIN AT THIS TIME. IN NO ACUTE DISTRESS. UNABLE TO INSERT IV. BEING COMBATIVE AT TIMES. KICKING/HITTING STAFF AND DURING DIAPER CHANGE. VERY IMPULSIVE. ABLE TO GIVE PM MEDS WITH APPLESAUCE. BED REMAINS IN LOW/LOCKED POSITION WITH HOB ELEVATED. SIDE RAILS UPX3 AND BED ALARM ON FOR SAFETY. WILL ENDORSE TO DAY SHIFT RN SHELBI.
--- NOTE | 2018-11-06 08:06 | NUR ---
MS RN NOTES PATIENT RECEIVED RESTING INSIDE ROOM. SLEEPING, AROUSABLE THROUGH VERBAL AND TACTILE STIMULI. BREATHING EVEN AND UNLABORED. DENIES ANY PAIN OR DISCOMFORT. PATIENT IMPULSIVE, REFUSES NURSING CARE. SITTER AT BEDSIDE. PATIENT PROVIDED WITH CALM, SAFE ENVIRONMENT. NO IV ACCESS AT THIS TIME. MD AWARE AND OK. WILL CONTINUE TO MONITOR. BED LOCKED AND IN LOW POSITION. BILATERAL UPPER SIDE RAILS UP AND LOCKED. CALL LIGHT WITHIN EASY REACH
[2018-11-06] MEDS: ENSURE ENLIVE 237 ML LIQUID (VANILLA) PO SCH ×2 (09:18→17:00)
[2018-11-06] MEDS: PANTOPRAZOLE 40 MG TABLET.DR PO SCH (09:18)
[2018-11-06] MEDS: MEGESTROL ACETATE SUSP 400 MG/10 ML UDC PO SCH ×2 (09:19→17:08)
[2018-11-06] MEDS: OLANZAPINE 2.5 MG TABLET PO SCH (09:19)
[2018-11-06] MEDS: HYDROXYCHLOROQUINE 200 MG TABLET PO SCH (09:19)
[2018-11-06] MEDS: METOPROLOL SUCCINATE 25 MG TAB.SR.24H PO SCH (09:19)
[2018-11-06] MEDS: NICOTINE PATCH (21MG) 21 MG PATCH.TD24 TD SCH (09:19)
[2018-11-06] MEDS: FLUOCINONIDE 0.05% CREAM 60 GM TUBE TP SCH (09:21)
[2018-11-06] MEDS ORDERED: LORAZEPAM 0.5 MG TABLET PO PRN (10:30)
[2018-11-06] MEDS: risperiDONE-M 0.5 MG TAB.RAPDIS PO SCH ×2 (10:52→17:08)
[2018-11-06] MEDS: BENZTROPINE MESYLATE (1 MG) 1 MG TABLET PO SCH (17:08)
--- NOTE | 2018-11-06 19:01 | NUR ---
MSRN NOTES PATIENT RESTING INSIDE ROOM. AWAKE, ALERT AND ORIENTED TO SELF. VERBALLY RESPONSIVE AND RESPONDS TO VERBAL AND TACTILE STIMULI. PATIENT WITH POOR IMPULSE. WITH EPISODES OF REFUSING NURSING CARE. PROVIDED WITH CALM, SAFE, HAZARD-FREE ENVIRONMENT. SITTER AT BEDSIDE. WILL ENDORSE TO INCOMING SHIFT FOR SHELBI. BED LOCKED AND IN LOW POSITION. BILATERAL UPPER SIDE RAILS UP AND LOCKED. CALL LIGHT WITHIN EASY REACH
--- NOTE | 2018-11-06 19:20 | NUR ---
RN OPENING NOTES PT RECEIVED AWAKE, SITTING UP IN BED. SITTER AT BEDSIDE. ON ROOM AIR, BREATHING EVEN AND UNLABORED. NO S/S OF SOB OR PAIN NOTED AT THIS TIME. PT REFUSED IV INSERTION DURING DAY SHIFT, MD AWARE. WILL ENCOURAGE FREQUENT PO INTAKE IF PT STILL REFUSING IV INSERTION. BED IN LOW/LOCKED POSITION, HOB ELEVATED AND SIDE RAILS UPX3. BED ALARM ON FOR SAFETY. WILL CONTINUE TO MONITOR
[2018-11-06 20:00] VITALS: BP 133/69
--- NOTE | 2018-11-06 20:30 | NUR ---
RN NOTES SPOKE TO DR. JEFFERY OVER THE PHONE. UPDATED HER ON PT'S BEHAVIOR AND CONDITION. NO NEW ORDERS AT THIS TIME.
[2018-11-06] MEDS: OLANZAPINE 5 MG/TAB.RAPDIS PO SCH (20:46)
--- NOTE | 2018-11-06 21:01 | NUR ---
RN NOTES PT AWAKE, SITTING UP IN BED. ABLE TO TAKE MEDS WITH LITTLE ASSIST. INITIALLY RELUCTANT TO TRY SNACKS. WITH SOME REINFORCEMENT, PT ENJOYED VANILLA PUDDING AND JELLO. ENCOURAGED PO LIQUIDS. FOLLOWS DIRECTION, CALM AND COOPERATIVE. NO BEHAVIORAL ISSUES NOTED AT THIS TIME. PT RESPONDING "THANK YOU" AND "MHMM". SITTER REMAINS AT BEDSIDE.
--- NOTE | 2018-11-07 06:45 | NUR ---
RN CLOSING NOTES PT ASLEEP. RESPONSIVE TO NAME. SITTER AT BEDSIDE. REMAINS ON ROOM AIR, BREATHING EVEN AND UNLABORED. NO S/S OF SOB OR PAIN NOTED AT THIS TIME. NO BEHAVIORAL CHANGES DURING SHIFT. CALM AND COOPERATIVE DURING SHIFT. COMPLIANT WITH CARE AND MEDS. NO SIGNIFICANT CHANGES OVERNIGHT. ALL NEEDS MET. BED IN LOW/LOCKED POSITION, HOB ELEVATED AND SIDE RAILS UPX3. BED ALARM ON FOR SAFETY. WILL ENDORSE TO DAY SHIFT RN SHELBI.
--- NOTE | 2018-11-07 07:58 | NUR ---
MS/RN Patient received Patient received from shift production supervisor. Continues on hold, expires 11/12, sitter at bedside. Calm and cooperative with plan of care, will continue to monitor and ensure safety.
[2018-11-07 08:00] VITALS: BP 113/78
[2018-11-07] MEDS: BENZTROPINE MESYLATE (1 MG) 1 MG TABLET PO SCH ×3 (08:45→16:22)
[2018-11-07] MEDS: MEGESTROL ACETATE SUSP 400 MG/10 ML UDC PO SCH ×2 (08:45→16:21)
[2018-11-07] MEDS: VENLAFAXINE XR 37.5 MG CAP.SR.24H PO SCH (08:45)
[2018-11-07] MEDS: risperiDONE-M 0.5 MG TAB.RAPDIS PO SCH ×3 (08:45→16:21)
[2018-11-07] MEDS: PANTOPRAZOLE 40 MG TABLET.DR PO SCH (08:45)
[2018-11-07] MEDS: METOPROLOL SUCCINATE 25 MG TAB.SR.24H PO SCH (08:46)
[2018-11-07] MEDS: HYDROXYCHLOROQUINE 200 MG TABLET PO SCH (08:46)
[2018-11-07] MEDS: NICOTINE PATCH (21MG) 21 MG PATCH.TD24 TD SCH ×2 (08:46→09:00)
[2018-11-07] MEDS: ENSURE ENLIVE 237 ML LIQUID (VANILLA) PO SCH ×2 (08:47→16:21)
[2018-11-07] MEDS: FLUOCINONIDE 0.05% CREAM 60 GM TUBE TP SCH (08:47)
--- NOTE | 2018-11-07 09:00 | NUR ---
MS/RN Medications Agreeable to taking all oral medications but refusing nicotine patch.
--- NOTE | 2018-11-07 09:55 | NUR ---
MS/RN S/B Adama SHOEMAKER APPRENTICE S/B SHOEMAKER APPRENTICE - patient medically cleared for [facility].
[2018-11-07] MEDS ORDERED: LACT-246 PO (11:23)
[2018-11-07] MEDS ORDERED: NICO-677 TD (11:23)
[2018-11-07] MEDS ORDERED: VENL37.55 PO (11:23)
[2018-11-07] MEDS ORDERED: MAGN400O6 PO (11:23)
[2018-11-07] MEDS ORDERED: MEGE400O4 PO (11:23)
[2018-11-07] MEDS ORDERED: HYDR-3972 PO (11:23)
[2018-11-07] MEDS ORDERED: ACET325T53 PO (11:23)
[2018-11-07] MEDS ORDERED: OLAN5TAB6 PO (11:23)
[2018-11-07] MEDS ORDERED: risperiDONE-M PO (11:23)
[2018-11-07] MEDS ORDERED: LORA0.5T PO (11:23)
[2018-11-07] MEDS ORDERED: MAG30ORA PO (11:23)
[2018-11-07] MEDS ORDERED: BENZ1TAB7 PO (11:23)
[2018-11-07] MEDS ORDERED: PANT40TA2 PO (11:23)
[2018-11-07] MEDS: LORAZEPAM 0.5 MG TABLET PO SCH ×2 (12:31→16:22)
--- NOTE | 2018-11-07 12:33 | NUR ---
MS/RN Medications held Ativan, risperidone and Cogentin held due to patient's lethargy, making her risk of aspiration. Will administer when more alert.
--- NOTE | 2018-11-07 18:49 | NUR ---
MS/RN End note Patient refusing to take any medications or allowing for vital signs to be recorded, MD aware. Awaiting transfer to [facility] as patient medically cleared.
--- NOTE | 2018-11-07 19:20 | NUR ---
CHANGE OF SHIFT REPORT Received patient in bed, awake appears withdrawn and quiet, covering her face with her arms and blanket. Appears calm, denies pain. On 5250 Hold, safety checks continuous, sitter at the bedside. Will cont to monitor.
[2018-11-07 21:00] VITALS: BP 100/57
[2018-11-07] MEDS: OLANZAPINE 5 MG/TAB.RAPDIS PO SCH (21:38)
--- NOTE | 2018-11-08 06:35 | NUR ---
END OF SHIFT REPORT Patient in bed, stable oxygen saturation on RA. Facial rash improving, denies pain. Slept well, no acute events overnight. Patient to be discharge to [facility], safety checks continuous, sitter at the bedside. Psych following, on 5249 Hold.
--- NOTE | 2018-11-08 07:24 | NUR ---
RN OPENING NOTES PT RECEIVED AWAKE IN BED WITH SITTER AT BEDSIDE. HOB ELEVATED. A/O X1-2. VERBALLY RESPONSIVE, DENIES PAIN OR DISCOMFORTS AT THIS TIME. CALMED, QUIET . AND DENIES HI/SI AT THIS TIME. ON 02 VIA N/C @ 2LPM, BREATHING EVEN AND UNLABORED. NO IV ACCESS PER PROTOCOL. SAFETY MEASURES IN PLACE. BED IN LOW/LOCKED POSITION WITH CALL LIGHT IN REACH. SIDE RAILS UP X2. WILL CONTINUE TO MONITOR
[2018-11-08] MEDS: PANTOPRAZOLE 40 MG TABLET.DR PO SCH (07:35)
[2018-11-08 08:00] VITALS: BP 119/69
[2018-11-08] MEDS: METOPROLOL SUCCINATE 25 MG TAB.SR.24H PO SCH (08:19)
[2018-11-08] MEDS: MEGESTROL ACETATE SUSP 400 MG/10 ML UDC PO SCH ×2 (08:36→16:51)
[2018-11-08] MEDS: HYDROXYCHLOROQUINE 200 MG TABLET PO SCH (08:37)
[2018-11-08] MEDS: NICOTINE PATCH (21MG) 21 MG PATCH.TD24 TD SCH (08:37)
[2018-11-08] MEDS: VENLAFAXINE XR 37.5 MG CAP.SR.24H PO SCH (08:37)
[2018-11-08] MEDS: LORAZEPAM 0.5 MG TABLET PO SCH ×3 (08:38→16:52)
[2018-11-08] MEDS: risperiDONE-M 0.5 MG TAB.RAPDIS PO SCH ×3 (08:38→16:52)
[2018-11-08] MEDS: FLUOCINONIDE 0.05% CREAM 60 GM TUBE TP SCH (08:39)
[2018-11-08] MEDS: BENZTROPINE MESYLATE (1 MG) 1 MG TABLET PO SCH ×3 (08:41→16:52)
[2018-11-08] MEDS: ENSURE ENLIVE 237 ML LIQUID (VANILLA) PO SCH ×2 (08:44→17:18)
--- NOTE | 2018-11-08 12:37 | NUR ---
RN NOTES SPOKE TO DR PEREZ VIA PHONE AND INFORMED HIM THAT PATIENT IS MEDICALLY CLEARED BY NELLY MAGANA TO TRANSFER TO [facility] AND HE AGREED. WILL CONTINUE TO MONITOR.
[2018-11-08 16:00] VITALS: BP 100/82
--- NOTE | 2018-11-08 17:27 | NUR ---
RN NOTES PATIENT FOR TRANSFER TO [facility] RM 220-2 TODAY. CALLED AND REPORT GIVEN TO VIDYA SANCHEZ OF [facility].
--- NOTE | 2018-11-08 19:20 | NUR ---
RN CLOSING NOTES PT IN BED AWAKE WITH NUNU AT BEDSIDE. 1:1 SITTER AT BEDSIDE. A/O X2. VERBALLY RESPONSIVE. PT NOTED WITH PERIODS OF CONFUSION AND AGITATION DURING THE DAY. EMOTIONAL SUPPORT GIVEN AND NEEDS ATTENDED WELL. ALL MEDS TAKEN AND TOLERATED. ON ROOM AIR, TOLERATING WELL WITH NO SOB NOTED. NO IV ACCESS PER PROTOCOL. ALL SAFETY MEASURES KEPT IN PLACE. BED IN LOW/LOCKED POSITION WITH CALL LIGHT IN REACH. SIDE RAILS UP X2. ALL NEEDS AND CARE PROVIDED WELL. PT FOR DISCHARGE TO [facility] RM 220-2 TONIGHT. ENDORSE TO BLEND PLANT OPERATOR NURSE RVI.
--- NOTE | 2018-11-08 19:30 | NUR ---
RECEIVED PATIENT IN BED AWAKE. ALERT AND ORIENTED TO SELF AND SITUATION. CALM AT THIS TIME. NO ACUTE DISTRESS NOTED. DENIES ANY PAIN AT THIS TIME. SAFETY REMINDERS GIVEN. ON LOW BED WITH BILATERAL UPPER SIDE RAILS UP. CALL CASILLAS WITHIN EASY REACH.
[2018-11-08] MEDS: OLANZAPINE 5 MG/TAB.RAPDIS PO SCH (19:31)
--- NOTE | 2018-11-08 20:06 | NUR ---
PATIENT DISCHARGED AND TRANSFERRED TO [facility] ROOM 220-2. RECEIVED BY JAZMYN DASILVA. PATIENT IN STABLE CONDITION. DENIES ANY PAIN AT THIS TIME. DISCHARGE PAPERWORK GIVEN TO RN. BELONGINGS GIVEN TO RECEIVING DIRECTOR OF STRATEGIC PARTNERSHIPS.
== END 2018-11-08 20:05 | DRG 682 ==
LOC: MED 12:26 → MEDSG2 11-05 20:14
PROVIDERS: ADMIT Student in an Organized Health Care Education/Training Program; ATTEND Nurse Practitioner Acute Care
DX: N17.0 Acute kidney failure with tubular necrosis (principal); G93.41 Metabolic encephalopathy; E43 Unspecified severe protein-calorie malnutrition; N39.0 Urinary tract infection, site not specified; Z68.1 Body mass index [BMI] 19.9 or less, adult; F05 Delirium due to known physiological condition; G10 Huntington's disease; R64 Cachexia; R62.7 Adult failure to thrive; F03.90 Unspecified dementia, unspecified severity, without behavioral disturbance, psychotic disturbance, mood disturbance, and anxiety; M32.9 Systemic lupus erythematosus, unspecified; F01.50 Vascular dementia, unspecified severity, without behavioral disturbance, psychotic disturbance, mood disturbance, and anxiety; F29 Unspecified psychosis not due to a substance or known physiological condition; I10 Essential (primary) hypertension; F17.210 Nicotine dependence, cigarettes, uncomplicated; J44.9 Chronic obstructive pulmonary disease, unspecified; E88.09 Other disorders of plasma-protein metabolism, not elsewhere classified
CPT/HCPCS: 36415; 76770-TC; 80048-TC; 80053-TC; 81000-TC; 82550-TC; 83735-TC; 83970; 84100-TC; 84155; 84165; 84439-TC; 84443-TC; 85025-TC; 85652-TC; 86706; 86803; 87081-TC; 87340; A4216; G0378; J0744; J3490

== ENCOUNTER 2018-11-08 20:32 | Inpatient (IN) | payer MEDICARE ==
[~2018-11-08] VITALS: Ht 160 cm; Wt 42.2 kg
--- NOTE | 2018-11-08 19:45 | NUR ---
[facility] SUGAR CANE GROWER NOTE: ADMITTED A 63 YEAR OLD FEMALE FROM MED-SURG FLOOR FOR CONFUSION AND AGITATION. PATIENT ADMITTED ON 5250 HOLD FOR DTO/GD EXP 11/12. PATIENT WAS BROUGHT IN VIA WHEELCHAIR, PATIENT ALERT, ORIENTED X1, CONFUSED, DISORIENTED, DISORGANIZED, UNDERSTANDS CONCEPTS, KNOWS HER NAME. ACCOMPANIED PATIENT, PATIENT CALM, QUIET, COMFORTABLE, NO APPARENT DISTRESS NOTED. RESPIRATION EVEN, BREATHING PATTERN NON-LABORED, NO S/S OF INFECTION. REFUSED TO SIGN CONSENT. PATIENT UNDER THE PSYCHIATRIC CARE OF DR. CASTILLO AND MEDICAL CARE OF DR. REMIGIO GARCIA. NOTED FACIAL RASHES THAT IS RESOLVING, GENERALIZED BODY BRUISES THAT IS CLEARING. PATIENT STABLE CONDITION. SPOKE TO REMIGIO GARCIA, RE: MED RECON. MRSA SCREE TO BE DONE. PATIENT IS A FULL CODE. BELONGINGS INVENTORIED AND CHECKED FOR CONTRABAND. BED LOCKED AND PLACED ON LOWEST POSITION FOR SAFETY. WILL CONTINUE TO MONITOR Q 15 MINS. FOR SAFETY AND BEHAVIOR.
[~2018-11-08 20:32] MED LIST changes: +ACET325T53 PO; +BENZ1TAB7 PO; +HYDR-3972 PO; +LACT-246 PO; +LORA0.5T PO; +MAG30ORA PO; +MAGN400O6 PO; +MEGE400O4 PO; +NICO-677 TD; +OLAN5TAB6 PO; +PANT40TA2 PO; +VENL37.55 PO; +ZOLP5TAB8 PO; +risperiDONE-M PO
[2018-11-08] MEDS ORDERED: ACETAMINOPHEN 325 MG TABLET PO PRN (21:00)
[2018-11-08] MEDS ORDERED: LORAZEPAM 0.5 MG TABLET PO PRN (21:00)
[2018-11-08] MEDS ORDERED: MAG HYDROX/AL HYDROX/SIMETH 30 ML UDC PO PRN (21:00)
[2018-11-08] MEDS ORDERED: MAGNESIUM HYDROXIDE 30 ML UDC PO PRN (21:00)
[2018-11-08] MEDS ORDERED: HYDROCODONE/APAP 5/325MG 1 EACH TABLET PO PRN (23:00)
[2018-11-09] MEDS: TEMAZEPAM 7.5 MG CAPSULE PO PRN (02:07)
[2018-11-09] MEDS: PANTOPRAZOLE 40 MG TABLET.DR PO SCH ×2 (07:30→08:30)
[2018-11-09] MEDS: METOPROLOL SUCCINATE 25 MG TAB.SR.24H PO SCH (08:29)
[2018-11-09] MEDS: HYDROXYCHLOROQUINE 200 MG TABLET PO SCH ×2 (08:30→09:00)
[2018-11-09] MEDS: NICOTINE PATCH (21MG) 21 MG PATCH.TD24 TD SCH (08:31)
[2018-11-09] MEDS: MEGESTROL ACETATE SUSP 400 MG/10 ML UDC PO SCH ×3 (08:31→16:42)
[2018-11-09] MEDS: LISINOPRIL (20MG) 20 MG TABLET PO SCH (08:31)
[2018-11-09] MEDS: ENSURE ENLIVE 237 ML LIQUID (VANILLA) PO SCH ×2 (09:00→17:44)
--- NOTE | 2018-11-09 09:30 | NUR ---
SW contacted pts Oleksandr [phone] and discussed pts discharge plan. stated he wants pt discharged home with caregiving services and provided SW with a contact number for Riana Gilliland, literacy coordinator in [facility] [phone]. asked SW if she is able to contact Riana and coordinate caregiving services due to Riana needing clinical information. SW stated she would contact Riana and fax clinical information.
--- NOTE | 2018-11-09 09:59 | NUR ---
Psychosocial Note: I, Mishel Fernandez ACCOUNTS CLERK, attest to the patients previous psychosocial information dated 10/29/18 Update On Events leading to Admission and Discharge Plan: Pt has returned to the Geropsychiatry Unit from the Medical Floor after pt was cleared medically for Acute Kidney Failure. Pt was discharged to the Medical floor on 10/30/18 and was readmitted to [facility] on 11/08/18. The current plan is to increase the patient on her medications and discharge her back to her home in [place] with mental health services, caregiving services, and home health to ensure the pts safety. Per pts Oleksandr [phone] he feels that pt will do better if she were at home and wishes for pt to return home with a caregiver. Pt appeared to be in a lethargic mood with flat affect. Pt appeared to be ambulatory, well-groomed and appropriately dressed. Pt also appeared paranoid/delusional stating, "the Mexicans are eating my food." Pt is confused, disorganized, and disoriented. SW will work with the pt and the MD regarding appropriate discharge planning. SW will form a safe and proper discharge.
--- NOTE | 2018-11-09 10:45 | NUR ---
ALBARO contacted Riana Gilliland [phone] from [facility] who stated she has already emailed pts a list of caregiver services in his areas. ALBARO will follow up with .
[2018-11-09 12:41] LABS: ALBUMIN 3.6 g/dL (3.4-5.0); BILIRUBIN,TOTAL 0.6 mg/dL (0.2-1.0); CALCIUM, SERUM 9.4 mg/dL (8.5-10.1); CREATININE 1.1 mg/dL (0.6-1.3); POTASSIUM 4.1 mmol/L (3.5-5.1); TOTAL PROTEIN, SERUM 7.4 g/dL (6.4-8.2)
[2018-11-09 16:00] VITALS: BP 126/74
[2018-11-09 16:41] LABS: CHOLESTEROL 139 mg/dL (<200); HDL CHOLESTEROL 35 mg/dL (40-60); LDL 94 mg/dL (0-99); TRIGLYCERIDES 83 mg/dL (30-150)
[2018-11-09] MEDS: BENZTROPINE MESYLATE (1 MG) 1 MG TABLET PO SCH ×2 (16:54→16:57)
[2018-11-09] MEDS: risperiDONE 1 MG TABLET PO SCH ×2 (16:55→16:57)
--- NOTE | 2018-11-09 17:31 | NUR ---
RN NOTES PT REFUSED ALL DUE MEDS; REINFORCED TEACHINGS BUT PT STRONGLY REFUSED.
[2018-11-10 08:00] VITALS: BP 110/63
[2018-11-10] MEDS: LISINOPRIL (20MG) 20 MG TABLET PO SCH (09:00)
[2018-11-10] MEDS: METOPROLOL SUCCINATE 25 MG TAB.SR.24H PO SCH (09:00)
[2018-11-10] MEDS: NICOTINE PATCH (21MG) 21 MG PATCH.TD24 TD SCH (09:00)
[2018-11-10] MEDS: PANTOPRAZOLE 40 MG TABLET.DR PO SCH (10:13)
[2018-11-10] MEDS: VENLAFAXINE XR 150 MG CAP.SR.24H PO SCH (10:13)
[2018-11-10] MEDS: risperiDONE 1 MG TABLET PO SCH ×2 (10:13→18:03)
[2018-11-10 10:20] LABS: BASOPHILS % (AUTO) 0.5 % (0.0-2.0); EOSINOPHILS % (AUTO) 0.6 % (0.0-6.0); HEMATOCRIT 36 % (33-45); HEMOGLOBIN 12.2 g/dL (11.5-14.8); LYMPHOCYTES # (AUTO) 2.1 /CMM (0.8-4.8); LYMPHOCYTES % (AUTO) 32.9 % (20.0-44.0); MEAN CORPUSCULAR HGB CONC 34 g/dl (31.0-36.0); MEAN CORPUSCULAR VOLUME 90 fL (82-100); MONOCYTES # (AUTO) 0.4 /CMM (0.1-1.30); NEUTROPHILS # (AUTO) 3.7 /CMM (1.8-8.9); PLATELET COUNT (AUTO) 165 /CMM (150-450); RED BLOOD CELL COUNT(AUTO) 3.94 MIL/uL (4.0-5.2); WHITE BLOOD COUNT (AUTO) 6.3 K/uL (4.3-11.0)
[2018-11-10] MEDS: HYDROXYCHLOROQUINE 200 MG TABLET PO SCH (10:31)
[2018-11-10] MEDS: BENZTROPINE MESYLATE (1 MG) 1 MG TABLET PO SCH ×2 (10:31→18:04)
[2018-11-10] MEDS: MEGESTROL ACETATE SUSP 400 MG/10 ML UDC PO SCH ×2 (10:32→18:03)
[2018-11-10] MEDS: ENSURE ENLIVE 237 ML LIQUID (VANILLA) PO SCH ×2 (10:40→18:10)
[2018-11-10 10:44] LABS: CALCIUM, SERUM 9.1 mg/dL (8.5-10.1); CREATININE 1.1 mg/dL (0.6-1.3); POTASSIUM 3.7 mmol/L (3.5-5.1)
--- NOTE | 2018-11-10 15:36 | NUR ---
in elijah chair,as unruly at times.med compliant.
[2018-11-10 16:00] VITALS: BP 109/70
[2018-11-10 21:10] VITALS: BP 109/63
[2018-11-11] MEDS: PANTOPRAZOLE 40 MG TABLET.DR PO SCH (07:30)
[2018-11-11 08:00] VITALS: BP 114/64
[2018-11-11] MEDS: VENLAFAXINE XR 150 MG CAP.SR.24H PO SCH (09:54)
[2018-11-11] MEDS: MEGESTROL ACETATE SUSP 400 MG/10 ML UDC PO SCH ×2 (09:54→17:00)
[2018-11-11] MEDS: METOPROLOL SUCCINATE 25 MG TAB.SR.24H PO SCH (09:55)
[2018-11-11] MEDS: risperiDONE 1 MG TABLET PO SCH ×2 (09:55→17:00)
[2018-11-11] MEDS: HYDROXYCHLOROQUINE 200 MG TABLET PO SCH (09:55)
[2018-11-11] MEDS: LISINOPRIL (20MG) 20 MG TABLET PO SCH (09:56)
[2018-11-11] MEDS: BENZTROPINE MESYLATE (1 MG) 1 MG TABLET PO SCH ×2 (09:57→17:00)
[2018-11-11] MEDS: ENSURE ENLIVE 237 ML LIQUID (VANILLA) PO SCH ×2 (09:58→17:00)
[2018-11-11] MEDS: NICOTINE PATCH (21MG) 21 MG PATCH.TD24 TD SCH (09:58)
[2018-11-11 16:00] VITALS: BP 100/56
[2018-11-11] MEDS: MUPIROCIN OINT 2% 22 GM TUBE SCH (21:29)
[2018-11-12] MEDS: PANTOPRAZOLE 40 MG TABLET.DR PO SCH (07:30)
[2018-11-12 08:00] VITALS: BP 125/74
[2018-11-12] MEDS: MUPIROCIN OINT 2% 22 GM TUBE SCH ×2 (09:00→21:28)
[2018-11-12] MEDS: BENZTROPINE MESYLATE (1 MG) 1 MG TABLET PO SCH ×2 (09:32→17:38)
[2018-11-12] MEDS: risperiDONE 1 MG TABLET PO SCH ×2 (09:32→17:38)
[2018-11-12] MEDS: MEGESTROL ACETATE SUSP 400 MG/10 ML UDC PO SCH ×2 (09:32→17:38)
[2018-11-12] MEDS: METOPROLOL SUCCINATE 25 MG TAB.SR.24H PO SCH (09:33)
[2018-11-12] MEDS: NICOTINE PATCH (21MG) 21 MG PATCH.TD24 TD SCH (09:33)
[2018-11-12] MEDS: VENLAFAXINE XR 150 MG CAP.SR.24H PO SCH (09:33)
[2018-11-12] MEDS: HYDROXYCHLOROQUINE 200 MG TABLET PO SCH (09:33)
[2018-11-12] MEDS: ENSURE ENLIVE 237 ML LIQUID (VANILLA) PO SCH ×2 (09:34→17:42)
[2018-11-12] MEDS: LISINOPRIL (20MG) 20 MG TABLET PO SCH (09:34)
--- NOTE | 2018-11-12 10:55 | NUR ---
SW received a call from Niecy, household coordinator at [facility] [place] [place] [address] who stated pt has been accepted to their facility. Pt was referred by Kranthi case packer and sealer in Med/Surg.
[2018-11-12 17:30] VITALS: BP 123/63
--- NOTE | 2018-11-12 19:30 | NUR ---
[facility]PS RN NOTE, RECEIVED PATIENT AWAKE AND IN ROOM NO S/S OR COMPLAINTS OF PAIN AT THIS TIME. PATIENT IS DISPLAYING NO S/S OF APPARENT DISTRESS AT THIS TIME. PATIENT BREATHING IS UNLABORED WITH EQUAL RISE AND FALL OF THE CHEST. PATIENT IS ALERT AND ORIENTED X 1 ON ROOM AIR WITH A SPO2 OF 95%. PATIENT IS MED SELECTIVE, ISOLATIVE, DISORGANIZED, DEPRESSED, UNCOOPERATIVE, UNKEPT, AND NEEDS REORIENTATION. PATIENT DENIES SUICIDE AND HOMICIDAL IDEATIONS AT THIS TIME. PATIENT ASSISTED WITH TURNING AND REPOSITIONING Q2HR AND PRN FOR COMFORT AND CIRCULATION. PATIENT HAS NO NEEDS AT THIS TIME. PATIENT EDUCATED ON THE USE OF THE CALL CASILLAS. PATIENT BED SIDE RAILS ARE UP X 2 FOR SAFETY, BED IS LOCKED AND LOW. WILL CONTINUE TO MONITOR AND MAINTAIN SAFETY Q15 MIN WITH THE HELP OF STAFF.
[2018-11-12 20:46] VITALS: BP 92/50
[2018-11-13 08:00] VITALS: BP 100/60
[2018-11-13] MEDS: MEGESTROL ACETATE SUSP 400 MG/10 ML UDC PO SCH ×2 (08:58→16:35)
[2018-11-13] MEDS: BENZTROPINE MESYLATE (1 MG) 1 MG TABLET PO SCH ×2 (08:58→16:35)
[2018-11-13] MEDS: LISINOPRIL (20MG) 20 MG TABLET PO SCH (08:58)
[2018-11-13] MEDS: MUPIROCIN OINT 2% 22 GM TUBE SCH ×2 (08:58→21:40)
[2018-11-13] MEDS: PANTOPRAZOLE 40 MG TABLET.DR PO SCH (08:58)
[2018-11-13] MEDS: NICOTINE PATCH (21MG) 21 MG PATCH.TD24 TD SCH (08:58)
[2018-11-13] MEDS: risperiDONE 1 MG TABLET PO SCH ×2 (08:58→16:35)
[2018-11-13] MEDS: HYDROXYCHLOROQUINE 200 MG TABLET PO SCH (08:58)
[2018-11-13] MEDS: VENLAFAXINE XR 150 MG CAP.SR.24H PO SCH (08:58)
[2018-11-13] MEDS: METOPROLOL SUCCINATE 25 MG TAB.SR.24H PO SCH (08:58)
--- NOTE | 2018-11-13 09:48 | NUR ---
WOUND CARE CONSULT: PT PRESENTS MOVING ALMOST CONSTANTLY. PT NOTED TO HAVE MULTIPLE BRUISES, PRESENT ON ADMISSION WELL SKIN LESION TO RT EYEBROW AREA. RECOMMENDATIONS MADE FOR SKIN PROTECTION. DISCUSSED WITH NURSING STAFF. WILL SEE PRN.
[2018-11-13] MEDS ORDERED: Z GUARD REMEDY 2 OZ OINT TP PRN (10:00)
--- NOTE | 2018-11-13 10:06 | NUR ---
ALBARO contacted pts Oleksandr [phone] and discussed pts discharge plan and informed him pt had been accepted to [facility]. refused placement and stated he wanted pt home and stated he has arranged for a caregiver to assess pt once home for caregiving services. ALBARO informed him pt will be discharging on 11/15/18. agreed and stated he will be picking pt up and transporting home at 12:00pm.
[2018-11-13] MEDS: ENSURE ENLIVE 237 ML LIQUID (VANILLA) PO SCH ×2 (11:47→16:34)
--- NOTE | 2018-11-13 13:02 | NUR ---
SW received a call from pts Oelksandr [phone] stating that he is reconsidering SNF placement and that he was on his way to the hospital to see pt and determine whether he is able to care for her or not at home. also stated that he is interviewing caregivers tomorrow 11/14/18 from 1-4pm. stated that he would call SW tomorrow 11/14/18 and give a definitive answer regarding if he wants pt discharged home or to a SNF.
[2018-11-13 16:00] VITALS: BP 100/80
--- NOTE | 2018-11-13 19:30 | NUR ---
[facility] RN NOTE, RECEIVED PATIENT AWAKE AND IN ROOM NO S/S OR COMPLAINTS OF PAIN AT THIS TIME. PATIENT IS DISPLAYING NO S/S OF APPARENT DISTRESS AT THIS TIME. PATIENT BREATHING IS UNLABORED WITH EQUAL RISE AND FALL OF THE CHEST. PATIENT IS ALERT AND ORIENTED X 1 ON ROOM AIR WITH A SPO2 OF 93%. PATIENT IS MED SELECTIVE, HYPERVERBAL, ISOLATIVE, DISORGANIZED, DEPRESSED, UNCOOPERATIVE, UNKEPT, AND NEEDS REORIENTATION. PATIENT DENIES SUICIDE AND HOMICIDAL IDEATIONS AT THIS TIME. PATIENT ASSISTED WITH TURNING AND REPOSITIONING Q2HR AND PRN FOR COMFORT AND CIRCULATION. PATIENT HAS NO NEEDS AT THIS TIME. PATIENT EDUCATED ON THE USE OF THE CALL CASILLAS. PATIENT BED SIDE RAILS ARE UP X 2 FOR SAFETY, BED IS LOCKED AND LOW. WILL CONTINUE TO MONITOR AND MAINTAIN SAFETY Q15 MIN WITH THE HELP OF STAFF.
[2018-11-13 20:15] VITALS: BP 93/54
[2018-11-14 08:48] VITALS: BP 128/71
[2018-11-14] MEDS: PANTOPRAZOLE 40 MG TABLET.DR PO SCH (08:58)
[2018-11-14] MEDS: risperiDONE 1 MG TABLET PO SCH ×2 (08:58→16:11)
[2018-11-14] MEDS: VENLAFAXINE XR 150 MG CAP.SR.24H PO SCH (08:58)
[2018-11-14] MEDS: NICOTINE PATCH (21MG) 21 MG PATCH.TD24 TD SCH (08:58)
[2018-11-14] MEDS: HYDROXYCHLOROQUINE 200 MG TABLET PO SCH (08:58)
[2018-11-14] MEDS: METOPROLOL SUCCINATE 25 MG TAB.SR.24H PO SCH (08:59)
[2018-11-14] MEDS: MEGESTROL ACETATE SUSP 400 MG/10 ML UDC PO SCH ×2 (08:59→16:12)
[2018-11-14] MEDS: BENZTROPINE MESYLATE (1 MG) 1 MG TABLET PO SCH ×2 (08:59→16:11)
[2018-11-14] MEDS: LISINOPRIL (20MG) 20 MG TABLET PO SCH (09:31)
[2018-11-14] MEDS: MUPIROCIN OINT 2% 22 GM TUBE SCH ×2 (09:59→21:05)
[2018-11-14] MEDS: ENSURE ENLIVE 237 ML LIQUID (VANILLA) PO SCH ×2 (09:59→16:12)
--- NOTE | 2018-11-14 11:09 | NUR ---
SW received a call from pts Oleksandr [phone] stating that he wishes to take pt home and he stated he will be interviewing caregivers on this present day. stated that he will be picking pt up at 12:00pm on 11/15/18.
[2018-11-14 16:00] VITALS: BP 112/66
--- NOTE | 2018-11-14 16:13 | NUR ---
SUPPORTIVE COUNSELING: SW observed pt drinking Ensure, pt stated that she wanted to go home with her Oleksandr and also stated she wanted to shower. SW provided pt with positive reinforcement and also informed her she was being discharged tomorrow 11/15/18.
[2018-11-14 19:50] VITALS: BP 89/38
[2018-11-14] MEDS: TEMAZEPAM 7.5 MG CAPSULE PO PRN (20:04)
[2018-11-15 08:00] VITALS: BP 116/66
[2018-11-15] MEDS: BENZTROPINE MESYLATE (1 MG) 1 MG TABLET PO SCH (08:35)
[2018-11-15] MEDS: MUPIROCIN OINT 2% 22 GM TUBE SCH (08:40)
[2018-11-15] MEDS: VENLAFAXINE XR 150 MG CAP.SR.24H PO SCH (08:41)
[2018-11-15] MEDS: PANTOPRAZOLE 40 MG TABLET.DR PO SCH (08:41)
[2018-11-15] MEDS: MEGESTROL ACETATE SUSP 400 MG/10 ML UDC PO SCH (08:41)
[2018-11-15] MEDS: NICOTINE PATCH (21MG) 21 MG PATCH.TD24 TD SCH (08:41)
[2018-11-15] MEDS: risperiDONE 1 MG TABLET PO SCH (08:41)
[2018-11-15 08:42] VITALS: BP 116/66
[2018-11-15] MEDS: METOPROLOL SUCCINATE 25 MG TAB.SR.24H PO SCH (08:42)
[2018-11-15] MEDS: LISINOPRIL (20MG) 20 MG TABLET PO SCH (08:42)
[2018-11-15] MEDS: ENSURE ENLIVE 237 ML LIQUID (VANILLA) PO SCH (08:43)
[2018-11-15] MEDS: HYDROXYCHLOROQUINE 200 MG TABLET PO SCH (08:44)
--- NOTE | 2018-11-15 10:28 | NUR ---
DISCHARGE NOTE: Pt will be discharged at 12:00pm via private vehicle home to [address] [place] [id number] with caregiving services. Pts Oleksandr [phone] will transport pt home. Pts mood is euthymic with congruent affect. Pt denied visual/auditory hallucinations and denied suicidal/homicidal ideation. [facility] [address] [facility] [place] [address] Phone: [phone] on Friday November 16, 2018 before 4:00pm for an intake. Pts will also schedule a follow up appointment with Printed Circuit Board Drafter: Dr. Marianela Rico Address: [address] [place] [address] . The multidisciplinary exitcare form was done, printed, signed, and given to the patient.
--- NOTE | 2018-11-15 12:00 | NUR ---
GPS/RN PT DISCHARGED HOME WITH HER A RIDE. NO SI OR HI AT THE TIME OF D/C. PRESCRIPTIONS AND EXIT CARE INSTRUCTIONS GIVEN AND UNDERSTOOD. PT REFUSED TO SIGN AND TO LET RN TO TAKE THE PICTURES. ID BAND REMOVED. PROPERTY RETURNED.
== END 2018-11-15 12:00 | disposition home or self-care (01) | DRG 885 ==
LOC: GPS 20:32
PROVIDERS: ADMIT Psychiatry & Neurology Psychiatry; ATTEND Nurse Practitioner Acute Care
DX: F29 Unspecified psychosis not due to a substance or known physiological condition (principal); F01.50 Vascular dementia, unspecified severity, without behavioral disturbance, psychotic disturbance, mood disturbance, and anxiety; E43 Unspecified severe protein-calorie malnutrition; M32.9 Systemic lupus erythematosus, unspecified; G10 Huntington's disease; Z68.1 Body mass index [BMI] 19.9 or less, adult; F41.9 Anxiety disorder, unspecified; F15.10 Other stimulant abuse, uncomplicated; I10 Essential (primary) hypertension; J44.9 Chronic obstructive pulmonary disease, unspecified; Z87.440 Personal history of urinary (tract) infections; Z73.6 Limitation of activities due to disability; Z22.322 Carrier or suspected carrier of Methicillin resistant Staphylococcus aureus
CPT/HCPCS: 36415; 80048-TC; 80053-TC; 80061-TC; 85025-TC; 87081-TC